=== PATIENT | male | born 1975 | race Caucasian/White ===

== ENCOUNTER 2023-09-24 09:33 | Outpatient (OUT) | payer MEDICAID, SELFPAY ==
[2023-09-24 09:48] LABS: Basophils Absolute Auto 0.1 10^3/uL (0.0-0.1); Basophils Percent Auto 0.9 % (0.2-2.0); Eosinophils Absolute Auto 0.2 10^3/uL (0.0-0.7); Eosinophils Percent Auto 2.9 % (0.9-7.0); Hematocrit 38.5 % (42.0-54.0); Hemoglobin 13.1 g/dL (14.0-18.0); Immature Granulocytes Abs Auto 0.08 10^3/uL (0.00-0.03); Immature Granulocytes Pct Auto 1.1 % (0.0-0.5); Lymphocytes Absolute Auto 1.8 10^3/uL (1.2-3.8); Lymphocytes Percent Auto 23.3 % (20.5-60.0); Mean Corpuscular Hemoglobin 29.5 pg (25.9-34.0); Mean Corpuscular Volume 86.7 fL (80.0-94.0); Mean Platelet Volume 9.1 fL (9.5-13.5); Monocytes Absolute Auto 0.6 10^3/uL (0.3-0.8); Monocytes Percent Auto 8.3 % (1.7-12.0); Neutrophils Absolute Auto 4.8 10^3/uL (1.4-6.5); Neutrophils Percent Auto 63.5 % (43.0-75.0); Platelet Count 192 10^3/uL (150-450); Red Blood Count 4.44 10^6/uL (4.70-6.10); Red Cell Distribution Width 12.6 % (11.0-15.0); White Blood Count 7.6 10^3/uL (4.0-11.0)
[2023-09-24 11:15] LABS: Alanine Aminotransferase 33 U/L (16-63); Albumin Globulin Ratio 1.1; Albumin Level 3.5 g/dL (3.4-5.0); Alkaline Phosphatase 98 U/L (46-116); Anion Gap 9.4; Aspartate Amino Transferase 17 U/L (15-37); BUN Creatinine Ratio 21.2; Bilirubin Total 0.7 mg/dL (0.2-1.0); Calcium 8.4 mg/dL (8.5-10.1); Carbon Dioxide 27.9 mmol/L (21.0-32.0); Chloride 103 mmol/L (98-107); Chol HDL Ratio 3.4; Cholesterol 125 mg/dL (<=200); Estimated GFR (African America >60 (>=60); Estimated GFR (Non-African Ame >60 (>=60); Globulin 3.2 g/dL; Glucose 103 mg/dL (74-106); HDL Cholesterol 37 mg/dL (40-60); Potassium 3.3 mmol/L (3.5-5.1); Sodium 137 mmol/L (136-145); Total Protein 6.7 g/dL (6.4-8.2); Triglycerides 83 mg/dL (<=150); VLDL CHOLESTEROL 16.6 mg/dL
== END 2023-09-24 09:34 | disposition home or self-care (01) ==
LOC: LAB 09:34
PROVIDERS: PCP Family Medicine; Visit Provider Internal Medicine Interventional Cardiology
DX: I10 Essential (primary) hypertension (principal); E78.5 Hyperlipidemia, unspecified
CPT/HCPCS: 36415; 80053; 80061; 85025

== ENCOUNTER 2023-10-22 08:53 | Outpatient (OUT) | payer MEDICAID, SELFPAY ==
--- NOTE | 2023-10-22 | PCN_ITS ---
CARDIAC STRESS TEST Requesting Physician:? Procedure Date:? 10/22/2023 INDICATION:? Chest pain. METHODS:? After risks, benefits and alternatives were explained, written informed consent was obtained.? The patient was brought to the Stress Lab in a resting and fasting state. He underwent a Lexiscan Pharmacological Stress Test, 0.4 mg of Lexiscan was infused intravenously.? He was monitored for the standard duration and discharged in a stable state.? There were no complications. FINDINGS HEMODYNAMICS:? Resting heart rate was 76 beats per minute, increasing to a maximum of 100 beats per minute. Resting blood pressure was 116/72, with a maximum blood pressure of 140/70. ELECTROCARDIOGRAPHY:? Resting EKG:? Sinus rhythm, right bundle branch block.? Abnormal EKG. During infusion and recovery:? No significant ST-T wave changes noted.? No significant arrhythmia seen.? CONCLUSIONS: 1.? No ischemic EKG changes seen on Lexiscan Cardiolite Stress Test. 2.? Nuclear images are to be read, interpreted and reported in a separate dictation. [facility]
--- NOTE | 2023-10-22 09:30 | NM_ITS ---
Patient Name: DERRELL CAGLE MR#: [id number] : 1975 Exam Date: 10/22/2023 Ordering Doctor: DR JUAN MORRIS M.D. RADIOLOGY REPORT PROCEDURE: NM REED PERF SPECT REST STR COMPARISON: None. INDICATIONS: CORONARY ARTERY DISEASE TECHNIQUE: Exam Description: Stress/Rest two day protocol gated SPECT Rest Imagin.5 mCi Tc-99m Cardiolite IV on 10/24/2023 Stress Imaging 26.6 mCi Tc-99m Cardiolite IV on 10/22/2023 Exercise Protocol: 0.4 mg Lexiscan given IV Heart Rate (bpm): Rest: 76 Max: 100 PMHR: 58 Blood Pressure: Rest: 116/72 Max: 140/70 Symptoms: Rest and peak stress ECG findings were normal and the exercise portion of the study was normal per attending physician Dr. Argueta . For more details please see separate cardiac stress test report. FINDINGS: QUALITY OF STUDY: Excellent. PERFUSION DEFECT: LOCATION: Basal inferior. Mid-inferior. Apical inferior. SIZE: Medium (3-4 segments). SEVERITY: Mild. TYPE: Persistent. WALL MOTION: Normal. LV SIZE: Enlarged; EDV 146 mL. TID / TCD: None; 1.1 LVEF: Normal. Calculated EF 59%. SUMMARY: Myocardial perfusion imaging study has ABNORMAL findings. CONCLUSION: 1. No acute or reversible ischemia. 2. Slightly decreased activity within the inferior wall; diaphragm attenuation artifact versus remote infarction with fixed ischemia. 3. Left ventriculomegaly, 146 mL. 4. Normal wall motion and ejection fraction. Dictated by: Regino Porter M.D. on 10/24/2023 at 14:11 Approved by: Regino Porter M.D. on 10/24/2023 at 14:15
[2023-10-22] MEDS: REGADENOSON 0.4 MG/5 ML SYRINGE IV (09:44)
== END 2023-10-22 08:54 | disposition home or self-care (01) ==
PROVIDERS: PCP Family Medicine; Visit Provider Internal Medicine Interventional Cardiology
DX: I25.118 Atherosclerotic heart disease of native coronary artery with other forms of angina pectoris (principal)
CPT/HCPCS: 78452; 93017; A9500; J2785

== ENCOUNTER 2024-06-22 13:31 | Outpatient (OUT) | payer MEDICAID, SELFPAY ==
--- NOTE | 2024-06-22 13:40 | CA_ITS ---
Patient Name: DERRELL CAGLE MR#: [id number] : 1975 Exam Date: 06/22/2024 Ordering Doctor: DR JUAN OKEEFE M.D. ECHOCARDIOGRAM REPORT PROCEDURE: CA ECHO DOPPLER COMPLETE INDICATIONS: Dyspnea COMPARISON: None. DESCRIPTION: COMPLETE ECHOCARDIOGRAM Real-time transthoracic echocardiography with 2D, M-mode, spectral and color flow Doppler performed. QUALITY: Technical quality was good. LEFT VENTRICLE: Normal chamber size. Borderline left ventricular hypertrophy. Global left ventricular systolic function is normal. LV EF: Calculated left ventricular ejection fraction is 55%. DIASTOLIC: Normal diastolic function. ATRIAL SEPTUM: LEFT ATRIUM: Normal chamber size. RIGHT ATRIUM: Mild dilatation. RIGHT VENTRICLE: Normal chamber size. Normal right ventricular systolic function. TRICUSPID VALVE: Normal mobility and thickness. No stenosis with trivial regurgitation. No evidence of pulmonary hypertension. RVSP 22 mmHg MITRAL VALVE: Normal mobility and thickness. No mitral valve prolapse. No evidence of mitral valve stenosis. There is no mitral annular calcification. No mitral regurgitation. AORTIC VALVE: Normal trileaflet appearance. No visible sclerosis. Normal leaflet mobility. No evidence of aortic valve stenosis. No aortic regurgitation. AORTIC ROOT: Normal diameter and appearance. PULMONIC VALVE: Normal thickness and mobility. No stenosis. No regurgitation. PERICARDIUM: No evidence of pericardial effusion. IVC: Collapses with inspirations. Normal size. PLEURA: CONCLUSION: 1. The left ventricle is normal in size and exhibits normal systolic function. LVEF is 55%. 2. Normal right ventricular size and systolic function. 3. Normal diastolic function. 4. No significant valvular dysfunction. 5. Normal right-sided pressures. Adult Echocardiography Procedure Report Left Ventricle LVEDD (3.7 - 5.6 cm): 4.38 cm LVESD (2.2 - 4.0 cm): 2.99 cm LVIVS thickness (0.6 - 1.2 cm): 1.18 cm LVPW thickness (0.5 - 1.0 cm): 1.01 cm e': 0.09 m/s E - e': 3.99 LVOT Max Gradient: 2.75 mm[Hg], 2.85 mm[Hg] LVOT Area (cm2): 0.84 m/s Peak Velocity (LVOT): 0.83 m/s, 0.84 m/s Mean Velocity (LVOT): 0.58 m/s LVOT Diameter 2.14 cm Left Ventricular Ejection Fraction: 55 % Left Atrium LA Volume Index (2D A2C): 21.25 ml/m2 Left Atrium Systolic Dimension: 3.38 cm Mitral Valve MV E to A Ratio: 0.97 Mitral Valve A-Wave Peak Velocity: 0.37 m/s Mitral Valve E-Wave Peak Velocity: 0.36 m/s Right Ventricle RV Internal Diastolic Dimension: 3.57 cm Aorta AO Root Diam: 2.98 cm Aortic Valve AoV Area (Peak Hugo): 2.45 cm2, 2.43 cm2 AoV Area (VTI): 2.58 cm2, 2.57 cm2 Peak Velocity(Antegrade Flow): 1.22 m/s Peak Gradient(Antegrade Flow): 5.99 mm[Hg] Mean Velocity(Antegrade Flow): 0.80 m/s Mean Gradient(Antegrade Flow): 2.91 mm[Hg] Velocity Time Integral: 21.39 cm Tricuspid Valve Peak Velocity (Regurgitant Flow): 2.20 m/s, 2.01 m/s, 2.15 m/s Pulmonic Valve Mean Gradient: 1.43 mm[Hg] Mean Velocity: 0.56 m/s Peak Velocity: 0.81 m/s, 0.90 m/s Peak Gradient: 3.26 mm[Hg], 2.62 mm[Hg] Right Atrium Right Atrium Systolic Pressure: 66.15 ml, 66.15 ml Dictated by: Juan Okeefe M.D. on 06/22/2024 at 18:18 Approved by: Juan Okeefe M.D. on 06/22/2024 at 18:20
--- OUTSIDE RECORDS SUMMARY | 2024-06-22 13:45 | XMS_ITS | CCD ---
Author Organization [facility] Team Providers Care Auto Bench Mechanic Name Role Phone PHYSICIAN, DEFAULT Unavailable Unavailable PHYSICIAN, DEFAULT Unavailable Unavailable NATALI JORGE Unavailable Unavailable PHYSICIAN, DEFAULT Unavailable Unavailable PHYSICIAN, DEFAULT Unavailable Unavailable NATALI JORGE Unavailable Unavailable HERBERT KATZ Consulting Unavailable LUISITO, DR NATALI Alvarenga Primary Care Unavailable HERBERT KATZ Admitting Unavailable HERBERT KAZT Attending Unavailable SE PRICE Attending Unavailable ALBERT, SE Admitting Unavailable DR JORDON WHITE Consulting Unavailable LUISITO, DR NATALI Alvarenga Primary Care Unavailable SE PRICE Consulting Unavailable Nikki Camara Unavailable JUAN MORRIS Attending Unavailable JUAN MORRIS Attending Unavailable JUAN MORRIS Attending Unavailable Allergies Allergy Classification Reported Allergen(s) Allergy Type Date of Onset Reaction(s) Facility (1 source) Latex Drug allergy (disorder) 04-25-2016 [facility] Repository Medications Current Medications Medication Drug Class(es) Dates Sig (Normalized) Sig (Original) aspirin 81 mg chewable tablet (1 source) Platelet Aggregation Inhibitor, Nonsteroidal Anti-inflammatory Drug take 1 tablet by mouth in the morning Aspirin Low Dose 81 MG CHEW AND SWALLOW 1 (ONE) TABLET BY MOUTH IN THE MORNING Oral for 30 Days Active atorvastatin 80 mg oral tablet (1 source) HMG-CoA Reductase Inhibitor Atorvastatin Calcium 80 MG Oral for 30 Days Active cilostazol 100 mg oral tablet (1 source) Phosphodiesterase 3 Inhibitor Cilostazol 100 MG Oral for 30 Days Active ezetimibe 10 mg oral tablet (1 source) Dietary Cholesterol Absorption Inhibitor take 1 tablet by mouth in the morning Ezetimibe 10 MG TAKE 1 TABLET BY MOUTH IN THE MORNING Oral for 30 Days Active hydroCHLOROthiazide 25 mg oral tablet (1 source) Thiazide Diuretic Start: 01-22-20 16 take 1 tablet by mouth every twenty-four hours hydroCHLOROthiazide 25 MG 1 tablet Orally Once a day for 14 days Dec, Active losartan potassium 50 mg oral tablet (1 source) Angiotensin 2 Receptor Eris Start: 01-22-20 16 take 1 tablet by mouth every twenty-four hours Losartan Potassium 50 MG 1 tablet Orally Once a day for 14 days Dec, Active metoprolol tartrate 25 mg oral tablet (1 source) beta-Adrenergic Eris Metoprolol Tartrate 25 MG Oral for 30 Days Active NIFEdipine 60 mg osmotic 24 hr extended release oral tablet (1 source) Dihydropyridine Calcium Channel Eris take 1 tablet by mouth once daily NIFEdipine ER Osmotic Release 60 MG TAKE 1 TABLET BY MOUTH DAILY Oral for 30 Days Active Nitro Sublingual 0.4 0.4mg (1 source) Nitro Sublingual 0.4 0.4mg 1 Sublingual Every 5min x3 Active omeprazole 20 mg delayed release oral capsule (1 source) Proton Pump Inhibitor take 1 tablet by mouth in the morning Omeprazole 20 MG TAKE 1 TABLET BY MOUTH IN THE MORNING Oral for 30 Days Active spironolactone 25 mg oral tablet (1 source) Aldosterone Antagonist Spironolactone 25 MG Oral for 8 Days Active Completed/Discontinued Medications Medication Drug Class(es) Dates Sig (Normalized) Sig (Original) Dexamethasone / Neomycin / Polymyxin B (1 source) Aminoglycoside Antibacterial, Polymyxin-class Antibacterial, Corticosteroid Start: 01-09-2018 take 2 drop(s) into the eye(s) three times daily as needed Maxitrol 3.5-46291-8.1 2 drops into affected eye Ophthalmic Three times a day for 7 days Dec, Not-Taking/PRN Problems Active Problems Problem Classification Problem Date Documented Date Episodic/Chronic Chronic obstructive pulmonary disease and bronchiectasis (4 sources) Chronic obstructive pulmonary disease, unspecified; Translations: [COPD UNSPECIFIED] Onset: 04-10-2022 Chronic Coronary atherosclerosis and other heart disease (8 sources) Atherosclerotic heart disease of [place] coronary artery without angina pectoris; Translations: [Atherosclerotic heart disease of [place] coronary artery with other forms of angina pectoris] Onset: 06-14-2021 Chronic Coronary atherosclerosis and other heart disease (2 sources) Presence of coronary angioplasty implant and graft; Translations: [Presence of coronary angioplasty implant and graft] Onset: 05-20-2024 Episodic Disorders of lipid metabolism (2 sources) Mixed hyperlipidemia; Translations: [Mixed hyperlipidemia] Onset: 07-18-2022 Chronic Esophageal disorders (2 sources) Gastro-esophageal reflux disease without esophagitis; Translations: [Gastro-esophageal reflux disease without esophagitis] Onset: 09-26-2023 Chronic Essential hypertension (2 sources) Essential (primary) hypertension; Translations: [Essential (primary) hypertension] Onset: 07-18-2022 Chronic Other lower respiratory disease (2 sources) Shortness of breath; Translations: [Shortness of breath] Onset: 05-20-2024 Episodic Other nutritional; endocrine; and metabolic disorders (2 sources) Morbid (severe) obesity due to excess calories; Translations: [Morbid (severe) obesity due to excess calories] Onset: 09-30-2022 Chronic Peripheral and visceral atherosclerosis (2 sources) Peripheral vascular disease, unspecified; Translations: [Peripheral vascular disease, unspecified] Onset: 09-26-2023 Chronic Residual codes; unclassified (2 sources) Localized edema; Translations: [Localized edema] Onset: 05-20-2024 Episodic Past or Other Problems Problem Classification Problem Date Documented Da te Episodic/Chronic Unclassified (1 source) Exposure to COVID-19 virus Z20.822 Viral infection (1 source) COVID-19 Results Test Name Value Interpretation Reference Range Facility Office Visiton 05-20-2024 Follow-up visit [id number] Silverio Cagle 1975 M Date Provider Department Center 05/20/2024 JUAN NGUYEN Family History Problem Relation Age of Onset Diabetes Mother Hypertension Mother Diabetes Father Hypertension Father Coronary artery disease Father Family Status - Relation Status Age at Mother Father Level of Service:87135 [place] OFFICE/OUTPATIENT ESTABLISHED MOD MDM 30 MIN Normal [facility] COVID + FLU Quick Testingon 12-01-2023 SARS-CoV-2 (COVID-19) RNA SINDY+probe Ql (Unsp spec) Positive [facility] Other COVID + FLU Quick Testing Negative [facility] Other Office Visiton 11-12-2023 Follow-up visit [id number] Silverio Cagle 1975 M Date Provider Department Center 11/12/2023 JUAN NGUYEN Family History Problem Relation Age of Onset Diabetes Mother Hypertension Mother Diabetes Father Hypertension Father Coronary artery disease Father Family Status - Relation Status Age at Mother Father Level of Service:49736 [place] OFFICE/OUTPATIENT ESTABLISHED LOW MDM 20 MIN Normal [facility] Office Visiton 09-26-2023 Follow-up visit [id number] Silverio Cagle 1975 M Date Provider Department Center 09/26/2023 WENDYJUAN [facility] Family History Problem Relation Age of Onset Diabetes Mother Hypertension Mother Diabetes Father Hypertension Father Coronary artery disease Father Family Status - Relation Status Age at Mother Father Level of Service:08183 [place] OFFICE/OUTPATIENT ESTABLISHED MOD MDM 30-39 MIN Reason for Visit and Comments: Follow-up [093302] Normal [facility] HEMOGLOBINon 04-10-2022 Hemoglobin (Bld) [Mass/Vol] 13.5 g/dL Critically low 14.0-18.0 [facility] Comment on above: Performed By: #### H GB #### [facility] [address] [address] [address] Martínez Baca XR CHEST 2 Von 04-10-2022 XR CHEST 2 V EXAMINATION: XR CHEST 2 V HISTORY: Chronic obstructive lung disease , wheezing COMPARISON: XR chest 01/12/2019 FINDINGS: LUNGS: Stable scattered tiny nodules and mild stranding within lung bases. Hyperexpanded lungs. VASCULATURE: No increased pulmonary vasculature. PLEURA: No pneumothorax, effusion, or pleural thickening. CARDIAC: No cardiomegaly or cardiac silhouette abnormality. MEDIASTINUM: No visible mass or adenopathy. BONES: No fracture or visible bone lesion. OTHER: Negative. IMPRESSION: 1. No acute cardiopulmonary process. 2. Stable mild chronic changes within lung bases. Electronically authenticated by: JORDON WHITE Date: 2022-04-10 12:46 Normal [facility] CBC AUTO DIFFon 06-14-2021 BASO # 0.0 103/ul Normal 0.0-0.1 [facility] Comment on above: Performed By: #### C BC #### [facility] [address] [place], [place] [address] Nikhil Negron Basophils/100 WBC (Bld) 0.5 % Normal 0.2-2.0 [facility] Comment on above: Performed By: #### C BC #### [facility] [address] [id number] Nikhil Migdalia EO # 0.2 103/ul Normal 0.0-0.7 [facility] Comment on above: Performed By: #### C BC #### [facility] [address] [id number] Nikhil Migdalia Eosinophils/100 WBC (Bld) 2.9 % Normal 0.9-7.0 [facility] Comment on above: Performed By: #### C BC #### [facility] [address] [id number] Nikhil Migdalia Erythrocyte distribution width (RBC) [Ratio] 12.8 % Normal 11.0-15.0 [facility] Comment on above: Performed By: #### C BC #### [facility] [address] [place] [address] Nikhil Migdalia Hematocrit (Bld) [Volume fraction] 41.2 % Critically low 42.0-54.0 [facility] Comment on above: Performed By: #### C BC #### [facility] [address] [place], [place] [phone] Nikhil Migdalia Hemoglobin (Bld) [Mass/Vol] 13.9 g/dL Critically low 14.0-18.0 [facility] Comment on above: Performed By: #### C BC #### [facility] [address] [place], [place] [phone] Nikhil Migdalia IG # 0.05 10e3/ul Critically high 0.00-0.03 [facility] Comment on above: Performed By: #### C BC #### [facility] [address] [place], [place] [phone] Nikhil Migdalia IG % 0.9 % Critically high 0.0-0.5 [facility] Comment on above: Performed By: #### C BC #### [facility] [address] [place] [address] Nikhil Migdalia LYMPH # 1.6 103/ul Normal 1.2-3.8 [facility] Comment on above: Performed By: #### C BC #### [facility] [address] [place], [place] [address] Nikhil Migdalia Lymphocytes/100 WBC (Bld) 26.6 % Normal 20.5-60.0 [facility] Comment on above: Performed By: #### C BC #### [facility] [address] [place] [address] Nikhil Migdalia MANUAL DIFF REQ NO Normal [facility] Comment on above: Performed By: #### C BC #### [facility] [address] [place], [place] [phone] Nikhil Migdalia MCH (RBC) [Entitic mass] 29.1 pg Normal 25.9-34.0 [facility] Comment on above: Performed By: #### C BC #### [facility] [address] [place], [place] [id number] Nikhil Migdalia MCHC (RBC) [Mass/Vol] 33.7 g/dL Normal 29.9-35.2 [facility] Comment on above: Performed By: #### C BC #### [facility] [address] [place], [place] [phone] Nikhil Migdalia MCV (RBC) [Entitic vol] 86.4 fL Normal 80.0-94.0 [facility] Comment on above: Performed By: #### C BC #### [facility] [address] [place], [place] [address] Nikhil Migdalia MONO # 0.6 103/ul Normal 0.3-0.8 [facility] Comment on above: Performed By: #### C BC #### [facility] [address] [place], [place] [address] Nikhil Migdalia Monocytes/100 WBC (Bld) 9.7 % Normal 1.7-12.0 [facility] Comment on above: Performed By: #### C BC #### [facility] [address] [place], [place] [address] Nikhil Migdalia NEUT # 3.5 103/ul Normal 1.4-6.5 [facility] Comment on above: Performed By: #### C BC #### [facility] [address] [id number] Nikhil Negron Neutrophils/100 WBC (Bld) 59.4 % Normal 43.0-75.0 [facility] Comment on above: Performed By: #### C BC #### [facility] [address] [id number] Nikhil Negron Platelet mean volume (Bld) [Entitic vol] 9.7 fL Normal 9.5-13.5 [facility] Comment on above: Performed By: #### C BC #### [facility] [address] [id number] Nikhil Migdalia PLT 203 103/ul Normal 150-450 [facility] Comment on above: Performed By: #### C BC #### [facility] [address] [place], [place] [phone] Nikhil Migdalia RBC 4.77 106/ul Normal 4.70-6.10 [facility] Comment on above: Performed By: #### C BC #### [facility] [address] [id number] Nikhil Migdalia WBC 5.9 103/ul Normal 4.0-11.0 [facility] Comment on above: Performed By: #### C BC #### [facility] [address] [place], [place] [phone] Nikhil Negron LIPID PROFILEon 06-14-2021 CHOL-HDL RATIO NORM SEE BELOW Normal [facility] Comment on above: Result Comment: 3.3 - 4.4 LOW RISK 4.4 - 7.1 AVERAGE RISK 7.1 - 11.0 MODERATE RISK >11.0 HIGH RISK Performed By: #### L JEANNIE HAYES, LIPID #### [facility] [address] [place], [place] [address] Nikhil Migdalia Cholesterol [Mass/Vol] 117 mg/dL Normal <=200 [facility] Comment on above: Performed By: #### JEANNIE DELATORRE, LIPID #### [facility] [address] [place], [place] [address] Nikhil Migdalia Cholesterol in HDL [Mass/Vol] 34 mg/dL Normal [facility] Comment on above: Performed By: #### L JEANNIE HAYES, LIPID #### [facility] [address] [id number] Nikhil Migdalia Cholesterol in LDL [Mass/Vol] 64.2 mg/dL Normal [facility] Comment on above: Performed By: #### JEANNIE DELATORRE, LIPID #### [facility] [address] [place], [place] [address] Nikhil Migdalia Cholesterol.total/ Cholesterol in HDL [Mass ratio] 3.4 {ratio} Normal [facility] Comment on above: Performed By: #### JEANNIE DELATORRE, LIPID #### [facility] [address] [id number] Nikhil Migdalia HDL NORMAL > or = 60 mg/dl - LOW CARDIOVASCULAR RISK <40 mg/dl - HIGH CARDIOVASCULAR RISK Normal [facility] Comment on above: Performed By: #### JEANNIE DELATORRE, LIPID #### [facility] [address] [place] [address] Nikhil Migdalia LDL CALC NORMAL SEE BELOW Normal [facility] Comment on above: Result Comment: <100 mg/dl OPTIMAL 100 - 129 mg/dl NEAR OR ABOVE OPTIMAL 130 - 159 mg/dl BORDERLINE HIGH 160 - 189 mg/dl HIGH >190 mg/dl VERY HIGH Performed By: #### JEANNIE DELATORRE, LIPID #### [facility] [address] [address] Nikhil Migdalia Triglyceride [Mass/Vol] 94 mg/dL Normal <=150 [facility] Comment on above: Performed By: #### JEANNIE DELATORRE, LIPID #### [facility] [address] [place], [place] [phone] Nikhil Migdalia VLDL CALC 18.8 mg/dL Normal [facility] Comment on above: Performed By: #### JEANNIE DELATORRE, LIPID #### [facility] [address] [id number] Nikhil Migdalia LIVER PROFILEon 06-14-2021 Albumin [Mass/Vol] 3.8 g/dL Normal 3.5-5.0 [facility] Comment on above: Performed By: #### JEANNIE DELATORRE, LIPID #### [facility] [address] [id number] Nikhil Migdalia Albumin/Globulin [Mass ratio] 1.2 {ratio} Normal [facility] Comment on above: Performed By: #### JEANNIE DELATORRE, LIPID #### [facility] [address] [place], [place] [address] Nikhil Migdalia ALP [Catalytic activity/Vol] 104 U/L Normal 38-126 [facility] Comment on above: Performed By: #### JEANNIE DELATORRE, LIPID #### [facility] [address] [id number] Nikhil Migdalia ALT [Catalytic activity/Vol] 31 U/L Normal 21-72 [facility] Comment on above: Performed By: #### JEANNIE DELATORRE, LIPID #### [facility] [address] [address] Nikhil Migdalia AST [Catalytic activity/Vol] 15 U/L Critically low 17-59 [facility] Comment on above: Performed By: #### JEANNIE DELATORRE, LIPID #### [facility] [address] [id number] Nikhil Migdalia BILI, CONJUGATED 0.1 mg/dL Normal 0.0-0.3 [facility] Comment on above: Performed By: #### JEANNIE DELATORRE, LIPID #### [facility] [address] [id number] Nikhil Migdalia Bilirubin [Mass/Vol] 0.8 mg/dL Normal 0.2-1.3 [facility] Comment on above: Performed By: #### JEANNIE DELATORRE, LIPID #### [facility] [address] [id number] Nikhil Migdalia Globulin (S) [Mass/Vol] 3.3 g/dL Normal [facility] Comment on above: Performed By: #### JEANNIE DELATORRE, LIPID #### [facility] [address] [phone] Nikhil Migdalia Protein [Mass/Vol] 7.1 g/dL Normal 6.1-8.2 [facility] Comment on above: Performed By: #### JEANNIE DELATORRE, LIPID #### [facility] [address] [address] Nikhil Migdalia PROF CHEM 8 (BAS METB)on Anion gap [Moles/Vol] 12.4 mmol/L Normal [facility] Comment on above: Performed By: #### L IVER, BMP, LIPID #### [facility] [address] [place] [address] Nikhil Migdalia Calcium [Mass/Vol] 8.9 mg/dL Normal 8.4-10.2 [facility] Comment on above: Performed By: #### L IVER, BMP, LIPID #### [facility] [address] [place] [address] Nikhil Migdalia Chloride [Moles/Vol] 104 mmol/L Normal 98-107 [facility] Comment on above: Performed By: #### L IVER, BMP, LIPID #### [facility] [address] [place] [address] Nikhil Migdalia CO2 [Moles/Vol] 29.3 mmol/L Normal 22.0-30.0 [facility] [place] [facility] Comment on above: Performed By: #### L IVER, BMP, LIPID #### [facility] [address] [place] [address] Nikhil Migdalia Creatinine [Mass/Vol] 1.15 mg/dL Normal 0.66-1.25 [facility] Comment on above: Performed By: #### L IVER, BMP, LIPID #### [facility] [address] [place] [address] Nikhil Migdalia EGFR-AF [place]OREAN >60 Normal >=60 [facility] Comment on above: Performed By: #### L IVER, BMP, LIPID #### [facility] [address] [place] [address] Nikhil Migdalia EGFR-NON AF [place]AN >60 Normal >=60 [facility] Comment on above: Performed By: #### L IVER, BMP, LIPID #### [facility] [address] [place] [address] Nikhil Migdalia Glucose [Mass/Vol] 118 mg/dL Critically high 74-106 [facility] Comment on above: Performed By: #### L IVER, BMP, LIPID #### [facility] [address] [id number] Nikhil Migdalia Potassium [Moles/Vol] 3.7 mmol/L Normal 3.4-5.0 [facility] Comment on above: Performed By: #### L IVER, BMP, LIPID #### [facility] [address] [place], [place] [phone] Nikhil Migdalia Sodium [Moles/Vol] 142 mmol/L Normal 137-145 [facility] Comment on above: Performed By: #### L IVLAKEISHA BMP, LIPID #### [facility] [address] [place], [place] [address] Nikhil Migdalia Urea nitrogen [Mass/Vol] 16.0 mg/dL Normal 9.0-20.0 [facility] Comment on above: Performed By: #### L IVLAKEISHA BMP, LIPID #### [facility] [address] [place], [place] [phone] Nikhil Migdalia Urea nitrogen/Creatinin e [Mass ratio] 13.9 mg/mg Normal [facility] Comment on above: Performed By: #### L IVLAKEISHA BMP, LIPID #### [facility] [address] [place] [address] Nikhil Migdalia Vital Signs Date Time Vital Sign Value Performing Clinician Facility 12-01-2023 09:00-0500 Body height 180.34 cm Nikki Camara Other [facility] Other 12-01-2023 09:00-0500 Body mass index (BMI) [Ratio] 42.81 kg/m2 Nikki Camara Other [facility] Other 12-01-2023 09:00-0500 Body temperature 98.3 [degF] Nikki Camara Other [facility] Other 12-01-2023 09:00-0500 Body weight 139.26 kg Nikki Camara Other [facility] Other 12-01-2023 09:00-0500 Diastolic blood pressure 81 mm[Hg] Nikki Hoa Other [facility] Other 12-01-2023 09:00-0500 Respiratory rate 18 /min Nikki Hoa Other [facility] Other 12-01-2023 09:00-0500 SaO2% (BldA) [Mass fraction] 97 % Nikki Hoa Other [facility] Other 12-01-2023 09:00-0500 Systolic blood pressure 138 mm[Hg] Nikki Hoa Other [facility] Other Encounters Encounter Date Encounter Type Care Provider Facility Start: 05-20-2024 End: 05-20-2024 ambulatory [facility] Start: 12-01-2023 End: 12-01-2023 ambulatory Nikki Camara Other [facility] Other Start: 12-01-2023 Office outpatient ne w 20 minutes Nikki Camara [facility] Start: 11-12-2023 End: 11-12-2023 ambulatory [facility] Start: 09-26-2023 ambulatory [facility] Start: 04-10-2022 End: 04-11-2022 ambulatory SE PRICE Facility:[facility] Start: 06-14-2021 End: 06-15-2021 ambulatory HERBERTFRANCESCA CONTES Facility:[facility] Start: 03-17-2018 End: 03-18-2018 Ambulatory DEFAULT PHYSICIAN Facility:[facility] Start: 03-16-2018 End: 03-17-2018 Ambulatory DEFAULT PHYSICIAN Facility:[facility] Payers Date Payer Category Payer Medicaid [id number] 2. [id number] 1975 Unknown [id number] 1975 Unknown [id number] 1961 Unknown [id number] Unknown Social History Date Type Detail Facility Sex Assigned At [facility] Other Progress note 05-20-2024 Note Date & Type Note Facility 05-20-2024 Note This report has been cancelled. [facility] Progress note 05-20-2024 Note Date & Type Note Facility 05-20-2024 Note [facility] Subjective Silverio Cagle is a 48 y.o. year old male patient being seen for 6 mo follow up CAD, PAD, hypertension, and hyperlipidemia. Zetia was added at last apt in Oct 2023. Says his chest pain is right-sided. RICE remains stable and unchanged. Patient would like to know if he can double up one of his diuretics due to LE edema. No recent labs/imaging. Patient Active Problem List Diagnosis Angina pectoris (CMS/HCC) Cardiovascular stress test abnormal Claudication (CMS/HCC) Coronary arteriosclerosis Essential hypertension Hyperlipidemia Mild chronic obstructive pulmonary disease (CMS/HCC) Morbid obesity (CMS/HCC) Cholesteatoma of right ear Sleep apnea Family History Problem Relation Name Age of Onset Diabetes Mother Hypertension Mother Diabetes Father Hypertension Father Coronary artery disease Father Social History Tobacco Use Smoking status: Every Day Types: Cigarettes Smokeless tobacco: Never Substance Use Topics Alcohol use: Yes Comment: occasional Drug use: Never HPI Mr Cagle is seen in follow up on CAD s/p PCI and stent and PAD. CAD: A stress test on 04/03/2016 showed inferior and inferolateral ischemia. His EF is 56%. Due to continued symptoms on maximal medical therapy, he underwent PCI to the PLV branch of the RCA using Promus Premier 2.75 x 16 mm drug-eluting stent on 09/18/2016. At a prior visit I stopped plavix since it has been 1 year after the PCI procedure. He has history of hypertension and dyslipidemia on treatment. He has strong family history of cardiac disease (father at 58 of [place], brother had multiple stents and diet at age 47 of other causes, other brother had CABG at age 51). He has history of COPD. He is a smoker since age 15. At a prior visit he was having sharp right sided chest pain that comes and goes. I checked a stress test 03/17/2018. This was normal. On 08/23/2019, he was seen as a sick call. He had been having pain in the right side of the chest, pressure-like. I checked troponin, blood testing for CBC and BMP as well as a stress test and those were negative. He has claudication and is being treated with pletal. Prior noninvasive testing showed no significantly obstructive disease. He was diagnosed with COPD and follows with pulmonary. At last visit of 09/26/2023 I optimize medical therapy due to symptoms of angina. I increased metoprolol succinate from 25 to 50 mg daily and increased isosorbide mononitrate from 30 mg daily to 60 mg daily. I checked a stress test 09/2023 and did not show evidence of ischemia. Today he reports that he has been doing well on medications. His chest pain resolved. He does have shortness of breath on exertion. He has not had to use sublingual nitroglycerin. He has been having lower extremity ankle and feet swelling. He reports that he does not have symptoms of claudication. He continues to smoke. Review of Systems Cardiovascular: Positive for chest pain (right sided), dyspnea on exertion (intermittent, stable) and leg swelling. Musculoskeletal: Positive for neck pain. Neurological: Positive for headaches. All other systems reviewed and are negative. Objective Visit Vitals BP 98/70 (BP Location: Right arm, Patient Position: Sitting) Pulse 67 Ht 1.803 m (5' 11 ) Wt (!) 143 kg (316 lb) SpO2 97% BMI 44.07 kg/m??? Smoking Status Every Day BSA 2.68 m??? Physical Exam Constitutional: Appearance: He is well-developed. He is obese. He is not ill-appearing. HENT: Head: Normocephalic and atraumatic. Nose: Nose normal. Eyes: General: No scleral icterus. Pupils: Pupils are equal, round, and reactive to light. Neck: Thyroid: No thyromegaly. Vascular: No JVD. Cardiovascular: Rate and Rhythm: Normal rate and regular rhythm. Pulses: Radial pulses are 2+ on the right side and 2+ on the left side. Heart sounds: Normal heart sounds. No murmur heard. No friction rub. No gallop. Pulmonary: Effort: Pulmonary effort is normal. No respiratory distress. Breath sounds: Normal breath sounds. No wheezing or rales. Chest: Chest wall: No tenderness. Abdominal: General: Bowel sounds are normal. There is no distension. Palpations: Abdomen is soft. Tenderness: There is no abdominal tenderness. Musculoskeletal: General: No swelling. Cervical back: Neck supple. Right lower le+ Pitting Edema present. Left lower le+ Pitting Edema present. Skin: General: Skin is warm and dry. Neurological: General: No focal deficit present. Mental Status: He is alert and oriented to person, place, and time. Psychiatric: Mood and Affect: Mood normal. Behavior: Behavior is cooperative. Judgment: Judgment normal. Allergies No Known Allergies Medications Current Outpatient Medications: aspirin 81 mg chewable tablet, Chew 1 tablet (81 mg) in the morning., Disp: 90 tablet, Rfl: 3 atorvastatin (Lipitor) 80 mg (more content not included)... [facility] Evaluation note 12-01-2023 Note Date & Type Note Facility 12-01-2023 Evaluation note Encounter Date Diagnosis Assessment Notes Nov, Exposure to COVID-19 virus (ICD-10 - Z20.822) Nov, COVID-19 (ICD-10 - U07.1) Discharge Instructions for COVID-19 (Suspected or Confirmed ) material was printed Drink plenty fluids, get plenty of rest. Continue home medications as prescribed. Take Tylenol or Motrin as needed for aches pains or fevers. Follow-up with your family physician if no improvement in 2 to 3 days. You must quarantine for 5 days after the onset of your symptoms of COVID [facility] Other Progress note 11-12-2023 Note Date & Type Note Facility 11-12-2023 Note [facility] Subjective Silverio Cagle is a 47 y.o. year old male patient being seen for follow up stress test. Says chest pain has resolved. Gets SOB w/ exertion intermittently. Patient Active Problem List Diagnosis Angina pectoris (CMS/HCC) Cardiovascular stress test abnormal Claudication (CMS/HCC) Coronary arteriosclerosis Essential hypertension Hyperlipidemia Mild chronic obstructive pulmonary disease (CMS/HCC) Morbid obesity ([facility]/HCC) Cholesteatoma of right ear Sleep apnea Family History Problem Relation Name Age of Onset Diabetes Mother Hypertension Mother Diabetes Father Hypertension Father Coronary artery disease Father Social History Tobacco Use Smoking status: Every Day Types: Cigarettes Smokeless tobacco: Never Substance Use Topics Alcohol use: Yes Comment: occasional Drug use: Never HPI Mr Cagle is seen in follow up on CAD s/p PCI and stent and PAD. CAD: A stress test on 04/03/2016 showed inferior and inferolateral ischemia. His EF is 56%. Due to continued symptoms on maximal medical therapy, he underwent PCI to the PLV branch of the RCA using Promus Premier 2.75 x 16 mm drug-eluting stent on 09/18/2016. At a prior visit I stopped plavix since it has been 1 year after the PCI procedure. He has history of hypertension and dyslipidemia on treatment. He has strong family history of cardiac disease (father at 58 of [place], brother had multiple stents and diet at age 47 of other causes, other brother had CABG at age 51). He has history of COPD. He is a smoker since age 15. At a prior visit he was having sharp right sided chest pain that comes and goes. I checked a stress test 03/17/2018. This was normal. On 08/23/2019, he was seen as a sick call. He had been having pain in the right side of the chest, pressure-like. I checked troponin, blood testing for CBC and BMP as well as a stress test and those were negative. He has claudication and is being treated with pletal. Prior noninvasive testing showed no significantly obstructive disease. He was diagnosed with COPD and follows with pulmonary. At last visit of 09/26/2023 I optimize medical therapy due to symptoms of angina. I increased metoprolol succinate from 25 to 50 mg daily and increased isosorbide mononitrate from 30 mg daily to 60 mg daily. I checked a stress test and did not show evidence of ischemia. Today he reports that he has been doing well on medications. His chest pain resolved. He does have shortness of breath on exertion. He has not had to use sublingual nitroglycerin. He reports that he does not have symptoms of claudication. He continues to smoke. Review of Systems Cardiovascular: Positive for dyspnea on exertion (intermittent) and leg swelling (minimal). Musculoskeletal: Positive for neck pain. All other systems reviewed and are negative. Objective Visit Vitals BP 124/68 (BP Location: Left arm, Patient Position: Sitting) Pulse 70 Ht 1.803 m (5' 11 ) Wt (!) 139 kg (306 lb) SpO2 97% BMI 42.68 kg/m??? Smoking Status Every Day BSA 2.64 m??? Physical Exam Constitutional: Appearance: He is well-developed. He is obese. He is not ill-appearing. HENT: Head: Normocephalic and atraumatic. Nose: Nose normal. Eyes: General: No scleral icterus. Pupils: Pupils are equal, round, and reactive to light. Neck: Thyroid: No thyromegaly. Vascular: No JVD. Cardiovascular: Rate and Rhythm: Normal rate and regular rhythm. Pulses: Radial pulses are 2+ on the right side and 2+ on the left side. Heart sounds: Normal heart sounds. No murmur heard. No friction rub. No gallop. Pulmonary: Effort: Pulmonary effort is normal. No respiratory distress. Breath sounds: Normal breath sounds. No wheezing or rales. Chest: Chest wall: No tenderness. Abdominal: General: Bowel sounds are normal. There is no distension. Palpations: Abdomen is soft. Tenderness: There is no abdominal tenderness. Musculoskeletal: General: No swelling. Cervical back: Neck supple. Skin: General: Skin is warm and dry. Neurological: General: No focal deficit present. Mental Status: He is alert and oriented to person, place, and time. Psychiatric: Mood and Affect: Mood normal. Behavior: Behavior is cooperative. Judgment: Judgment normal. Allergies No Known Allergies Medications Current Outpatient Medications: aspirin 81 mg chewable tablet, Chew 1 tablet (81 mg) in the morning., Disp: 90 tablet, Rfl: 3 atorvastatin (Lipitor) 80 mg tablet, Take 1 tablet (80 mg) by mouth once daily in the evening., Disp: 90 tablet, Rfl: 3 cilostazol (Pletal) 100 mg tablet, Take 1 tablet (100 mg) by mouth in the morning and at bedtime., Disp: 180 tablet, Rfl: 3 ezetimibe (Zetia) 10 mg tablet, Take 1 tablet (10 mg) by mouth in the morning., Disp: 90 tablet, Rfl: 3 furosemide (Lasix) 40 mg tablet, Take 1 tablet (40 mg) by mouth in the morning., Disp (more content not included)... [facility] Progress note 09-26-2023 Note Date & Type Note Facility 09-26-2023 Note [facility] Subjective Silverio Cagle is a 47 y.o. year old male patient being seen for Follow-up Patient Active Problem List Diagnosis Angina pectoris (CMS/HCC) Cardiovascular stress test abnormal Claudication (CMS/HCC) Coronary arteriosclerosis Essential hypertension Hyperlipidemia Mild chronic obstructive pulmonary disease (CMS/HCC) Morbid obesity (CMS/HCC) Cholesteatoma of right ear Sleep apnea Family History Problem Relation Name Age of Onset Diabetes Mother Hypertension Mother Diabetes Father Hypertension Father Coronary artery disease Father Social History Tobacco Use Smoking status: Every Day Types: Cigarettes Smokeless tobacco: Never Substance Use Topics Alcohol use: Yes Comment: occasional Drug use: Never HPI Mr Cagle is seen in follow up on CAD s/p PCI and stent and PAD. CAD: A stress test on 04/03/2016 showed inferior and inferolateral ischemia. His EF is 56%. Due to continued symptoms on maximal medical therapy, he underwent PCI to the PLV branch of the RCA using Promus Premier 2.75 x 16 mm drug-eluting stent on 09/18/2016. At a prior visit I stopped plavix since it has been 1 year after the PCI procedure. He has history of hypertension and dyslipidemia on treatment. He has strong family history of cardiac disease (father at 58 of [place], brother had multiple stents and diet at age 47 of other causes, other brother had CABG at age 51). He has history of COPD. He is a smoker since age 15. At a prior visit he was having sharp right sided chest pain that comes and goes. I checked a stress test 03/17/2018. This was normal. On 08/23/2019, he was seen as a sick call. He had been having pain in the right side of the chest, pressure-like. I checked troponin, blood testing for CBC and BMP as well as a stress test and those were negative. He has claudication and is being treated with pletal. Prior noninvasive testing showed no significantly obstructive disease. He was diagnosed with COPD and follows with pulmonary. Today he reports that he has been having episodes of chest pain described as pressure sensation lasting 5 to 10 minutes. They are retrosternal and radiating to the right and left side of the chest. The chest pain episodes happen at rest or with exertion. He has had to use sublingual nitroglycerin a few times in the past few months. The chest pain has been happening in the past few months. He reports that he does not have symptoms of claudication. He continues to smoke. Review of Systems Cardiovascular: Positive for chest pain. All other systems reviewed and are negative. Objective Visit Vitals BP 155/65 (BP Location: Left arm, Patient Position: Sitting, BP Cuff Size: Adult) Pulse 70 Ht 1.803 m (5' 11 ) Wt (!) 139 kg (306 lb) SpO2 97% BMI 42.68 kg/m??? Smoking Status Every Day BSA 2.64 m??? Physical Exam Constitutional: Appearance: He is well-developed. He is obese. He is not ill-appearing. HENT: Head: Normocephalic and atraumatic. Nose: Nose normal. Eyes: General: No scleral icterus. Pupils: Pupils are equal, round, and reactive to light. Neck: Thyroid: No thyromegaly. Vascular: No JVD. Cardiovascular: Rate and Rhythm: Normal rate and regular rhythm. Pulses: Radial pulses are 2+ on the right side and 2+ on the left side. Heart sounds: Normal heart sounds. No murmur heard. No friction rub. No gallop. Pulmonary: Effort: Pulmonary effort is normal. No respiratory distress. Breath sounds: Normal breath sounds. No wheezing or rales. Chest: Chest wall: No tenderness. Abdominal: General: Bowel sounds are normal. There is no distension. Palpations: Abdomen is soft. Tenderness: There is no abdominal tenderness. Musculoskeletal: General: No swelling. Cervical back: Neck supple. Skin: General: Skin is warm and dry. Neurological: General: No focal deficit present. Mental Status: He is alert and oriented to person, place, and time. Psychiatric: Mood and Affect: Mood normal. Behavior: Behavior is cooperative. Judgment: Judgment normal. Allergies No Known Allergies Medications Current Outpatient Medications: aspirin 81 mg chewable tablet, Chew 1 tablet (81 mg) in the morning., Disp: 90 tablet, Rfl: 3 tiotropium-olodateroL (Stiolto Respimat) 2.5-2.5 mcg/actuation mist inhaler, Inhale 2 Inhalation in the morning., Disp: , Rfl: Ventolin HFA 90 mcg/actuation inhaler, INHALE 2 PUFFS EVERY 4 HOURS NEEDED for SHORTNESS OF BREATH, Disp: , Rfl: atorvastatin (Lipitor) 80 mg tablet, Take 1 tablet (80 mg) by mouth once daily in the evening., Disp: 90 tablet, Rfl: 3 cilostazol (Pletal) 100 mg tablet, Take 1 tablet (100 mg) by mouth in the morning and at bedtime., Disp: 180 tablet, Rfl: 3 ezetimibe (Zetia) 10 mg tablet, Take 1 tablet (10 mg) by mouth in the morning., Disp: 90 tablet, Rfl: 3 furosemide (Lasix) 40 mg tablet, Take 1 tablet (40 mg (more content not included)... [facility] History general Narrative - Reported Note Date & Type Note Facility History general Narrative - Reported Type Medical History Hypertension Medical History hypercholesterolemia Surgical History ear surgery right ear Surgical History right hand Surgical History appendectomy Surgical History varicose vein stripping Surgical History heart stent 2017 Hospitalization History see above [facility] Other Summary Purpose Family History No Family History Records FoundNo Family History Records FoundNo Family History Records Found Advance Directives No Advanced Directives Records FoundNo Advanced Directives Records FoundNo Advanced Directives Records Found Additional Source Comments (unrecognized sect ion and content) No Status Records FoundNo Status Records FoundNo Status Records Found INFORMATION SOURCE (unrecogn ized section and content) DATE CREATED AUTHOR 05/14/2018 [facility] DATE CREATED AUTHOR AUTHOR'S ORGANIZ ATION 04/17/[address] [facility] DATE CREATED AUTHOR AUTHOR'S ORGANIZ ATION 05/22/2024 [facility] REASON FOR VISIT (unrecogniz ed section and content) COUGH, CONGESTION, N/V, LOOS E STOOL FOR RECORDS PERTAINING TO PATIENTS WHO ARE OR HAVE BEEN ENROLLED IN A CHEMICAL DEPENDENCY/SUBSTANCEABUSE PROGRAM, SOME INFORMATION MAY BE OMITTED. This clinical summary was aggregated from multiple sources. Caution should be exercised in using it in the provision of clinical care. This summary normalizes information from multiple sources, and as a consequence, information in this document may materially change the coding, format and clinical context of patient data. In addition, data may be omitted in some cases. CLINICAL DECISIONS SHOULD BE BASED ON THE PRIMARY CLINICAL RECORDS. [facility] [employer] [facility]. provides no warranty or guarantee of the accuracy or completeness of information in this document.
== END 2024-06-22 13:32 | disposition home or self-care (01) ==
LOC: CARD 13:32
PROVIDERS: PCP Family Medicine; Visit Provider Internal Medicine Interventional Cardiology
DX: R60.0 Localized edema (principal); R06.02 Shortness of breath
CPT/HCPCS: 93306

== ENCOUNTER 2025-10-19 15:34 | Outpatient (OUT) | payer MEDICAID, SELFPAY ==
--- OUTSIDE RECORDS SUMMARY | 2025-10-19 14:20 | XMS_ITS | Encounter Summary ---
Author Organization [facility] Address [address] [place] [address] Care Team Providers Care Book Coverer Name Role Phone Unavailable Primary Care Provider Unavailabl e Reason for Referral * Imaging (Emergency) - Pending ReviewSpecialtyDiagnoses / ProceduresReferred By ContactReferred To ContactCardiology Diagnoses PVD (peripheral vascular disease) Leg pain, bilateral Procedures Vascular US lower extremity arterial duplex bilateral Marion Gregory CNP [address] [facility] [place] [address] Phone: tel: fax: Referral IDStatusReasonStart DateExpiration DateVisits RequestedVisits [id number] Review Perform Procedure * Imaging (Emergency) - Pending ReviewSpecialtyDiagnoses / ProceduresReferred By ContactReferred To ContactCardiology Diagnoses PVD (peripheral vascular disease) Leg pain, bilateral Procedures Vascular US lower extremity venous duplex bilateral Marion Gregory CNP [address] [place] [address] Phone: tel: fax: Referral IDStatusReasonStart DateExpiration DateVisits RequestedVisits [id number] Review Perform Procedure Reason for Visit * ReasonCommentsFollow-upPatient is here today for a 1.5 year follow up appointment. No labs Patient states he feels not to bad, patient went a couple of day without bp meds and water pills. Patient needs a refill on his medi cations. Patient states his right big toe has been purple for the last couple of months. Patient denies chest pain, SOB/RICE,palpitations/racing heart. Patient complains of occasional lightheaded/dizzinessCoronary Artery Disease Hyperlipidemia Encounter Details DateTypeDepartmentCare Team (Latest Contact Info)Dfpsaxbswll50/26/2025 2:20 PM ESTOffice Visit [facility] [address] [place] [address] Marion Gregory, BASIN OPERATOR [address] [place] [address] Leg pain, bilateral (Primary Dx); Mixed hyperlipidemia; Coronary artery disease involving red devil coronary artery of red devil heart with other form of angina pectoris; Essential (primary) hypertension; Essential hypertension; Gastro-esophageal reflux disease without esophagitis; PVD (peripheral vascular disease) Social History Tobacco UseTypesPacks/DayYears UsedDateSmoking Tobacco: Every DayCigarettes Smokeless Tobacco: NeverAlcohol UseStandard Drinks/WeekCommentsYes0 (1 standard drink = 0.6 oz pure alcohol)occasionalUT Safety & EnvironmentAnswerDate Recorded Fear of Current or Ex-PartnerNot on file01/15/2024Emotionally AbusedNot on file 4Physically AbusedNot on file01/15/2024Sexually AbusedNot on file 4Physically or Sexually AbusedNot on file01/15/2024Sex and Gender InformationValueDate RecordedSex Assigned at AusdzSfse24/24/2025 3:54 PM EST Legal JqtZonq6305/22/2022 11:44 PM EDTGender RxjlzjsjCddq57/24/2025 3:54 PM EST Sexual OrientationHeterosexual or Uipmknnu86/24/2025 3:54 PM ESTdocumented as of this encounter Last Filed Vital Signs Vital SignReadingTime TakenCommentsBlood Locallkw547/6710/19/2025 2:38 PM EST Cwhas419610/19/2025 2:38 PM ESTTemperature--Respiratory Rate--Oxygen Lmkemgnzdn78% 10/19/2025 2:38 PM ESTInhaled Oxygen Concentration--Weight--Hnqtkg893.3 cm (5' 11 )10/19/2025 2:38 PM ESTBody Mass Index--documented in this encounter Plan of Treatment NameTypePriorityAssociated DiagnosesOrder ScheduleVascular US lower extremity venous duplex bilateralVascular UltrasoundSTAT PVD (peripheral vascular disease) Leg pain, bilateral Expected: 10/19/2025 (Approximate), Expires: 10/19/2027Vascular US lower extremity arterial duplex bilateralVascular UltrasoundSTAT PVD (peripheral vascular disease) Leg pain, bilateral Expected: 10/19/2025 (Approximate), Expires: 10/19/2027Comprehensive metabolic panelLabRoutine Mixed hyperlipidemia Coronary artery disease involving red devil coronary artery of red devil heart with other form of angina pectoris Expected: 10/19/2025 (Approximate), Expires: 10/19/2026BCLabRoutine Coronary artery disease involving red devil coronary artery of red devil heart with other form of angina pectoris Expected: 10/19/2025 (Approximate), Expires: 10/19/2026Lipid panelLabRoutine Mixed hyperlipidemia Expected: 10/19/2025 (Approximate), Expires: 10/19/2026documented as of this encounter Visit Diagnoses Diagnosis Leg pain, bilateral- Primary Pain in soft tissues of limb Mixed hyperlipidemia Coronary artery disease involving red devil coronary artery of red devil heart with other form of angina pectoris Essential (primary) hypertension Unspecified essential hypertension Essential hypertension Unspecified essential hypertension Gastro-esophageal reflux disease without esophagitis PVD (peripheral vascular disease) Unspecified peripheral vascular disease documented in this encounter
--- OUTSIDE RECORDS SUMMARY | 2025-10-19 15:41 | XMS_ITS | Clinical Summary ---
Author Organization [facility] Address [address] [place] [address] Care Team Providers Care Polisher Implant Name Role Phone Unavailable Primary Care Provider Unavailabl e Allergies No known active allergies Medications MedicationSigDispense QuantityRefillsLast FilledStart DateEnd DateStatus tiotropium-olodateroL (Stiolto Respimat) 2.5-2.5 mcg/actuation mist inhaler Inhale 2 Inhalation in the morning.Active Ventolin HFA 90 mcg/actuation inhaler INHALE 2 PUFFS EVERY 4 HOURS NEEDED for SHORTNESS OF FWADHD5601/15/2023ctive tiotropium (Spiriva Respimat) 2.5 mcg/actuation inhaler INHALE 2 PUFFS BY MOUTH EVERY DAYActive atorvastatin (Lipitor) 80 mg tablet Indications:Mixed hyperlipidemiaTake 1 tablet (80 mg) by mouth once daily in the evening. 90 tablet ctive ezetimibe (Zetia) 10 mg tablet Indications:Mixed hyperlipidemia,Coronary artery disease involving [place] coronary artery of [place] heart with other form of angina pectorisTake 1 tablet (10 mg) by mouth once daily as directed. 90 tablet ctive furosemide (Lasix) 40 mg tablet Indications:Essential (primary) hypertensionTake 1 tablet (40 mg) by mouth in the morning. 90 tablet ctive isosorbide mononitrate ER (Imdur) 60 mg 24 hr tablet Indications:Coronary artery disease involving [place] coronary artery of [place] heart with other form of angina pectorisTake 1 tablet (60 mg) by mouth once daily as directed. Do not crush or chew. 90 tablet ctive metoprolol tartrate (Lopressor) 50 mg tablet Indications:Coronary artery disease involving [place] coronary artery of [place] heart with other form of angina pectorisTake 1 tablet (50 mg) by mouth two times daily. 180 tablet ctive losartan (Cozaar) 100 mg tablet Indications:Essential (primary) hypertensionTake 1 tablet (100 mg) by mouth in the morning. 90 tablet ctive NIFEdipine XL (Procardia XL) 30 mg 24 hr tablet Indications:Essential hypertensionTake 1 tablet (30 mg) by mouth in the morning. Do not crush, chew, or split. 90 tablet ctive nitroglycerin (Nitrostat) 0.4 mg SL tablet Indications:Coronary artery disease involving [place] coronary artery of [place] heart with other form of angina pectorisDISSOLVE 1 TABLET UNDER THE TONGUE NEEDED FOR CHEST PAIN- MAY REPEAT EVERY 5 MINUTES IF NEEDED (MAX 3 DOSES.- IF NO RELIEF CALL 911) 25 tablet tive spironolactone (Aldactone) 25 mg tablet Indications:Essential hypertensionTake 0.5 tablets (12.5 mg) by mouth once daily as directed. 45 tablet ctive omeprazole (PriLOSEC) [address] capsule Indications:Gastro-esophageal reflux disease without esophagitisTake 1 capsule (20 mg) by mouth once daily as directed. 90 capsule ctive cilostazol (Pletal) 100 mg tablet Indications:PVD (peripheral vascular disease)Take 1 tablet (100 mg) by mouth two times daily. 180 tablet ctive hydroCHLOROthiazide (HYDRODiuril) 25 mg tablet Indications:Essential (primary) hypertensionTake 1 tablet (25 mg) by mouth in the morning. 90 tablet ctive nitroglycerin (Nitrostat) 0.4 mg SL tablet Indications:Coronary artery disease involving [place] coronary artery of [place] heart with other form of angina pectorisDISSOLVE 1 TABLET UNDER THE TONGUE NEEDED FOR CHEST PAIN- MAY REPEAT EVERY 5 MINUTES IF NEEDED (MAX 3 DOSES.- IF NO RELIEF CALL 911) 25 tablet Discontinued(Reorder) furosemide (Lasix) 40 mg tablet Indications:Essential (primary) hypertensionTake 1 tablet (40 mg) by mouth in the morning. 90 tablet Discontinued(Reorder) hydroCHLOROthiazide (HYDRODiuril) 25 mg tablet Indications:Essential (primary) hypertensionTake 1 tablet (25 mg) by mouth in the morning. 90 tablet Discontinued(Reorder) losartan (Cozaar) 100 mg tablet Indications:Essential (primary) hypertensionTake 1 tablet (100 mg) by mouth in the morning. 90 tablet Discontinued(Reorder) atorvastatin (Lipitor) 80 mg tablet Indications:Mixed hyperlipidemiaTake 1 tablet (80 mg) by mouth once daily in the evening. 90 tablet Discontinued(Reorder) omeprazole (PriLOSEC) [address] capsule Indications:Gastro-esophageal reflux disease without esophagitisTake 1 capsule (20 mg) by mouth once daily as directed. 90 capsule Discontinued(Reorder) cilostazol (Pletal) 100 mg tablet Indications:PVD (peripheral vascular disease)Take 1 tablet (100 mg) by mouth two times daily. 180 tablet Discontinued(Reorder) NIFEdipine XL (Procardia XL) 30 mg 24 hr tablet Indications:Essential hypertensionTake 1 tablet (30 mg) by mouth in the morning. Do not crush, chew, or split. 90 tablet Discontinued(Reorder) isosorbide mononitrate ER (Imdur) 60 mg 24 hr tablet Indications:Coronary artery disease involving [place] coronary artery of [place] heart with other form of angina pectorisTake 1 tablet (60 mg) by mouth once daily as directed. Do not crush or chew. 90 tablet Discontinued(Reorder) ezetimibe (Zetia) 10 mg tablet Indications:Coronary artery disease involving [place] coronary artery of [place] heart with other form of angina pectoris,Mixed hyperlipidemiaTake 1 tablet (10 mg) by mouth once daily as directed. 90 tablet Discontinued(Reorder) metoprolol tartrate (Lopressor) 50 mg tablet Indications:Coronary artery disease involving [place] coronary artery of [place] heart with other form of angina pectorisTake 1 tablet (50 mg) by mouth two times daily. 180 tablet Discontinued(Reorder) spironolactone (Aldactone) 25 mg tablet Indications:Essential hypertensionTake 0.5 tablets (12.5 mg) by mouth once daily as directed. 45 tablet Discontinued(Reorder) atorvastatin (Lipitor) 80 mg tablet Indications:Mixed hyperlipidemiaTake 1 tablet (80 mg) by mouth once daily in the evening. 90 tablet Discontinued(Reorder) cilostazol (Pletal) 100 mg tablet Indications:PVD (peripheral vascular disease)Take 1 tablet (100 mg) by mouth two times daily. 180 tablet Discontinued(Reorder) ezetimibe (Zetia) 10 mg tablet Indications:Mixed hyperlipidemia,Coronary artery disease involving [place] coronary artery of [place] heart with other form of angina pectorisTake 1 tablet (10 mg) by mouth once daily as directed. 90 tablet Discontinued(Reorder) furosemide (Lasix) 40 mg tablet Indications:Essential (primary) hypertensionTake 1 tablet (40 mg) by mouth in the morning. 90 tablet Discontinued(Reorder) hydroCHLOROthiazide (HYDRODiuril) 25 mg tablet Indications:Essential (primary) hypertensionTake 1 tablet (25 mg) by mouth in the morning. 90 tablet Discontinued(Reorder) isosorbide mononitrate ER (Imdur) 60 mg 24 hr tablet Indications:Coronary artery disease involving [place] coronary artery of [place] heart with other form of angina pectorisTake 1 tablet (60 mg) by mouth once daily as directed. Do not crush or chew. 90 tablet Discontinued(Reorder) losartan (Cozaar) 100 mg tablet Indications:Essential (primary) hypertensionTake 1 tablet (100 mg) by mouth in the morning. 90 tablet Discontinued(Reorder) metoprolol tartrate (Lopressor) 50 mg tablet Indications:Coronary artery disease involving [place] coronary artery of [place] heart with other form of angina pectorisTake 1 tablet (50 mg) by mouth two times daily. 180 tablet Discontinued(Reorder) NIFEdipine XL (Procardia XL) 30 mg 24 hr tablet Indications:Essential hypertensionTake 1 tablet (30 mg) by mouth in the morning. Do not crush, chew, or split. 90 tablet Discontinued(Reorder) nitroglycerin (Nitrostat) 0.4 mg SL tablet Indications:Coronary artery disease involving [place] coronary artery of [place] heart with other form of angina pectorisDISSOLVE 1 TABLET UNDER THE TONGUE NEEDED FOR CHEST PAIN- MAY REPEAT EVERY 5 MINUTES IF NEEDED (MAX 3 DOSES.- IF NO RELIEF CALL 911) 25 tablet Discontinued(Reorder) omeprazole (PriLOSEC) [address] capsule Indications:Gastro-esophageal reflux disease without esophagitisTake 1 capsule (20 mg) by mouth once daily as directed. 90 capsule Discontinued(Reorder) spironolactone (Aldactone) 25 mg tablet Indications:Essential hypertensionTake 0.5 tablets (12.5 mg) by mouth once daily as directed. 45 tablet Discontinued(Reorder) Active Problems ProblemNoted DateDiagnosed DateSleep apnea05/14/2023 Overview (05/14/2023): bipap use Morbid bsfowwm4909/30/2022ngina hmqyilzj83/25/2022ardiovascular stress test /25/1050Vjsrcuefrbat15/25/2022oronary qtuneecwbqjxdwrd39/25/2022 Essential dtqmsdykrgfl52/25/7808Hxgmcledbjjywu37/25/2022Mild chronic obstructive pulmonary nepqrls4407/18/2022holesteatoma of right ear05/29/2021 Encounters DateTypeDepartmentCare VxbhStaouuphtqi41/26/2025 2:20 PM ESTOffice Visit [facility] [address] [place] [address] Marion Gregory CNP Leg pain, bilateral (Primary Dx); Mixed hyperlipidemia; Coronary artery disease involving [place] coronary artery of [place] heart with other form of angina pectoris; Essential (primary) hypertension; Essential hypertension; Gastro-esophageal reflux disease without esophagitis; PVD (peripheral vascular disease)10/13/2025[facility] [address] [place] [address] Priiclla Malin MA Mixed hyperlipidemia; PVD (peripheral vascular disease); Coronary artery disease involving [place] coronary artery of [place] heart with other form of angina pectoris; Essential (primary) hypertension; Essential hypertension; Gastro-esophageal reflux disease without /01/2025[facility] [address] [place] [address] Ansley Montano MA Coronary artery disease involving [place] coronary artery of [place] heart with other form of angina pectoris; Mixed hyperlipidemia; Essential hypertensionfrom Last 3 Months Immunizations ImmunizationAdministration DatesNext DueInfluenza, injectable, MDCK, preservative free, gmnxsqupgxkr91/07/2022Unspecified Sars-Cov-2 Vaccination 12/31/2021,04/18/2021,03/12/2021 Family History Medical HistoryRelationNameCommentsCoronary artery diseaseFatherDiabetesFather HypertensionFatherDiabetesMotherHypertensionMotherRelationNameStatusComments FatherDeceasedMotherDeceased Social History Tobacco UseTypesPacks/DayYears UsedDateSmoking Tobacco: Every DayCigarettes Smokeless Tobacco: NeverAlcohol UseStandard Drinks/WeekCommentsYes0 (1 standard drink = 0.6 oz pure alcohol)occasionalUT Safety & EnvironmentAnswerDate Recorded Fear of Current or Ex-PartnerNot on file01/15/2024Emotionally AbusedNot on file 4Physically AbusedNot on file01/15/2024Sexually AbusedNot on file 4Physically or Sexually AbusedNot on file01/15/2024Sex and Gender InformationValueDate RecordedSex Assigned at NextrBlii09/24/2025 3:54 PM EST Legal OsnTfyn6505/22/2022 11:44 PM EDTGender KpatbibcOcdb09/24/2025 3:54 PM EST Sexual OrientationHeterosexual or Mkottmmi73/24/2025 3:54 PM EST Last Filed Vital Signs Vital SignReadingTime TakenCommentsBlood Tntfocal557/6710/19/2025 2:38 PM EST Cddet480210/19/2025 2:38 PM ESTTemperature--Respiratory Ixzh650311/29/2020 3:06 PM ESTOxygen Kexfbmctef85%10/19/2025 2:38 PM ESTInhaled Oxygen Concentration-- Htcxde044 kg (316 lb)05/20/2024 3:06 PM BUHBercbi407.3 cm (5' 11 )10/19/2025 2:38 PM ESTBody Mass Index44.0705/20/2024 3:06 PM EDT Plan of Treatment Health MaintenanceDue DateLast DoneCommentsCT Qxwimzisbrzd53/28/1974Colonoscopy 1973Colorectal Cancer Owbmzsotd50/28/1974FIT-DNA1973FIT1973 FOBT1973 2061Besadcutpiwla37/28/1974Depression Suzlwaanq31/28/1986Hepatitis B Vaccines (1 of 3 - 19+ 3-dose series)1992Pneumococcal Vaccine: Pediatrics (0 to 5 Years) and At-Risk Patients (6 to 64 Years) (1 of 2 - PCV)1992 Adult Gasgrvx8312/21/1995Zoster Vaccines (1 of 2)4COVID-19 Vaccine ( - season)502/05/2022, 12/31/2021, 04/18/2021, Additional history existsInfluenza Vaccine (#1)502/05/2022HIB VaccinesAged OutNo longer eligible based on patient's age to complete this topicHPV VaccinesAged OutNo longer eligible based on patient's age to complete this topicIPV VaccinesAged OutNo longer eligible based on patient's age to complete this topicMeningococcal B VaccineAged OutNo longer eligible based on patient's age to complete this topicMeningococcal VaccineAged OutNo longer eligible based on patient's age to complete this topicRotavirus VaccinesAged OutNo longer eligible based on patient's age to complete this topic Insurance
--- OUTSIDE RECORDS SUMMARY | 2025-10-19 15:41 | XMS_ITS | Encounter Summary ---
Author Organization [facility] Address [address] [place] [address] Care Team Providers Care Yardage Control Clerk Name Role Phone Unavailable Primary Care Provider Unavailabl e Reason for Visit * ReasonOnset DateCommentsMed Opuuxv1810/13/2025 Encounter Details DateTypeDepartmentCare Team (Latest Contact Info)Pcfniluewbx65/20/2025Refill [facility] [place] [address] [place] [address] Pricilla Malin MA Mixed hyperlipidemia; PVD (peripheral vascular disease); Coronary artery disease involving [place] coronary artery of [place] heart with other form of angina pectoris; Essential (primary) hypertension; Essential hypertension; Gastro-esophageal reflux disease without esophagitis Social History Tobacco UseTypesPacks/DayYears UsedDateSmoking Tobacco: Every DayCigarettes Smokeless Tobacco: NeverAlcohol UseStandard Drinks/WeekCommentsYes0 (1 standard drink = 0.6 oz pure alcohol)occasionalUT Safety & EnvironmentAnswerDate Recorded Fear of Current or Ex-PartnerNot on file01/15/2024Emotionally AbusedNot on file 4Physically AbusedNot on file01/15/2024Sexually AbusedNot on file 4Physically or Sexually AbusedNot on file01/15/2024Sex and Gender InformationValueDate RecordedSex Assigned at UpdfvHnle43/24/2025 3:54 PM EST Legal VwmOvtg8805/22/2022 11:44 PM EDTGender CpnutrhmEtww44/24/2025 3:54 PM EST Sexual OrientationHeterosexual or Ryzwoimz40/24/2025 3:54 PM ESTdocumented as of this encounter Plan of Treatment Not on file documented as of this encounter Visit Diagnoses Diagnosis Mixed hyperlipidemia PVD (peripheral vascular disease) Unspecified peripheral vascular disease Coronary artery disease involving [place] coronary artery of [place] heart with other form of angina pectoris Essential (primary) hypertension Unspecified essential hypertension Essential hypertension Unspecified essential hypertension Gastro-esophageal reflux disease without esophagitis documented in this encounter
--- OUTSIDE RECORDS SUMMARY | 2025-10-19 15:42 | XMS_ITS | Clinical Summary ---
Author Organization [facility] Address [id number] [address] [place] [address] Care Team Providers Care Dog And Cat Food Cook Name Role Phone Pete Masterson MD Primary Care Provider [phone] Allergies No known active allergies Medications MedicationSigDispense QuantityRefillsLast FilledStart DateEnd DateStatus aspirin 81 mg chewable tablet daily.Active atorvastatin (LIPITOR) 80 mg tablet Indications:hyperlipidemiaTake 80 mg by mouth daily Indications: excessive fat in the blood. 02/24/2021ctive furosemide (LASIX) 40 mg tablet Indications:edemaTake 40 mg by mouth daily Indications: visible water retention. 02/27/2021ctive hydroCHLOROthiazide (HYDRODIURIL) 25 mg tablet Indications:edema,hypertensionTake 25 mg by mouth daily Indications: visible water retention, high blood pressure. 02/08/2021ctive losartan (COZAAR) 100 mg tablet Indications:hypertensionTake 100 mg by mouth daily Indications: high blood pressure. 01/20/2021ctive metoprolol tartrate (LOPRESSOR) 25 mg tablet Indications:hypertensionTake 25 mg by mouth 2 (two) times a day Indications: high blood pressure. 02/16/2021ctive isosorbide mononitrate (IMDUR) 30 mg 24 hr tablet Indications:prevention of anginal pain in coronary artery diseaseTake 30 mg by mouth daily Indications: prevention of anginal chest pain associated with coronary artery disease. 02/08/2021ctive NIFEdipine XL (PROCARDIA XL) 60 mg 24 hr tablet Indications:hypertensionTake 60 mg by mouth daily Indications: high blood pressure. 12/31/2020ctive omeprazole (PriLOSEC) 20 mg capsule Take 20 mg by mouth daily.01/01/2021ctive cilostazoL (PLETAL) 100 mg tablet Take 100 mg by mouth 2 (two) times a day. Heart stent Active nitroglycerin (NITROSTAT) 0.[address] 0.3 mg under the tongue every 5 (five) minutes as needed for chest pain. Active albuterol (PROVENTIL HFA;VENTOLIN HFA) 90 mcg/actuation inhaler INHALE 2 PUFFS BY MOUTH EVERY 4 HOURS NEEDED SHORTNESS OF UYVOUT1707/26/2021 Active nicotine (NICODERM CQ) 21 mg/24 hr apply 1 (ONE) patch EVERY DAY (on in the morning, off in the evening)07/26/2021 Active nicotine polacrilex (NICORETTE) 2 mg gum nicotine (polacrilex) 2 mg gum chew 1 (ONE) piece(s) of gum EVERY 2 HOURS DIRECTEDActive nicotine polacrilex (NICORETTE) 4 MG gum chew 1 (ONE) piece EVERY HOUR NEEDED for nicotine craving max 16 per day 07/26/2021ctive SPIRIVA RESPIMAT 2.5 mcg/actuation mist INHALE 2 PUFFS BY MOUTH EVERY DAY07/26/2021ctive CIPRODEX otic suspension 08/06/2021ctive Active Problems ProblemNoted DateDiagnosed DateEssential jdembzqemhcf11/14/2021Hyperlipidemia 08/07/2021Mild chronic obstructive pulmonary kmbgbos8808/07/2021oronary cwqnamtdkgszjmbw83/14/2021ardiovascular stress test zmojjxkw55/14/2021 Cholesteatoma of right ear05/29/2021leep apnea Overview (08/07/2021): bipap use Obesity Family History Medical HistoryRelationNameCommentsDiabetesBrotherDiabetesFatherHeart disease FatherDiabetesMotherDiabetesSisterAnesthesia problemsNeg HxRelationNameStatus CommentsBrotherAliveDaughterAliveFatherDeceased (Age 58)MotherDeceased (Age 55) SisterAliveSonAlive Social History Tobacco UseTypesPacks/DayYears UsedDateSmoking Tobacco: Every DayCigarettes1.530 Smokeless Tobacco: Never Tobacco Cessation:Ready to Q uit: No Alcohol UseStandard Drinks/WeekCommentsNot Currently0 (1 standard drink = 0.6 oz pure alcohol)rarelyChildcareAnswerDate BhvgkdmiAjmgoclnqJfjmqou25/23/2021 EmploymentAnswerDate ApgneyhwGrarjchzvoOjmawpx38/23/2021urpose - LifeAnswerDate RecordedPurpose and direction in jzewAooyekx51/23/2021ex and Gender Information ValueDate RecordedSex Assigned at BirthNot on fileLegal WmpNryc7102/13/2021 1:51 PM EDTGender IdentityNot on fileSexual OrientationNot on file Last Filed Vital Signs Vital SignReadingTime TakenCommentsBlood Mithtimm598/6809 11:50 AM EDT Mbleo184908/21/2021 11:55 AM TYTRbagqtrhxnt93.1 ??C (98.7 ??F)04/24/2022 3:32 PM EDTRespiratory Kbgc933208/21/2021 11:55 AM EDTOxygen Rnzhwvavkd91%08/21/2021 11:55 AM EDTInhaled Oxygen Concentration--Onixbj640.5 kg (312 lb)04/24/2022 3:32 PM OZDWkgfdh520.6 cm (5' 11.5 )04/24/2022 3:32 PM EDTBody Mass Index42.9106 3:32 PM EDT Plan of Treatment Health MaintenanceDue DateLast DoneCommentsDepression Halkkrhuj06/28/1986Tobacco Ixleyuzcp46/28/1986Adult BMI Mqmqlmtvt82/28/1992DTaP,Tdap and Td Vaccines (1 - Tdap)1992Zoster (Shingles) Vaccine (1 of 2)4COVID-19 Vaccine (4 - 2024- season)/05/2022, 04/18/2021, 03/12/2021Influenza Vaccine /tatin Use: Tnfouxsqnuwzqv27/12/202511/ Medical Devices ImplantedTypeAreaManufacturerDevice IdentifierShelf Expiration DateModel / Serial / LotMesh Pco Vntrl Ptch 6.6cm Rpl [id number] - Sna - [id number] Implanted:Qty: 1 on 04/03/2021 [facility] AbdomenMEDTRONIC [id number] / NA / [id number] Insurance Care Teams Team MemberRelationshipSpecialtyStart DateEnd Date Pete Masterson MD PCP - GeneralFamily Medicine02/13/21
--- OUTSIDE RECORDS SUMMARY | 2025-10-19 15:42 | XMS_ITS | Clinical Summary ---
Author Organization [facility] Address [address] [place] [address] Care Team Providers Care Director Paid Media Name Role Phone Pete Masterson MD Primary Care Provider [phone] Eleonora Hassan DO Unavailable [phone] Social History Tobacco UseTypesPacks/DayYears UsedDateSmoking Tobacco: Never AssessedSex and Gender InformationValueDate RecordedSex Assigned at BirthNot on fileLegal Sex Male11/04/2023 9:11 AM ESTGender IdentityNot on fileSexual OrientationNot on file Plan of Treatment Not on file Insurance Care Teams Team MemberRelationshipSpecialtyStart DateEnd Date Pete Masterson MD PCP - GeneralFamily Medicine02/16/24 Eleonora Hassan DO [address] [place] [address] Referring PhysicianNeurology02/11/24
--- OUTSIDE RECORDS SUMMARY | 2025-10-19 15:42 | XMS_ITS | CCD ---
Author Organization [facility] Care Team Providers Care Porcelain Enamel Sprayer Name Role Phone PHYSICIAN, DEFAULT Unavailable Unavailable PHYSICIAN, DEFAULT Unavailable Unavailable PETE JORGE Unavailable Unavailable PHYSICIAN, DEFAULT Unavailable Unavailable PHYSICIAN, DEFAULT Unavailable Unavailable PETE JORGE Unavailable Unavailable HERBERT KATZ Consulting Unavailable LUISITO, DR PETE Alvarenga Primary Care Unavailable HERBERT KATZ Admitting Unavailable HERBERT KATZ Attending Unavailable SE PRICE Attending Unavailable SE PRICE Admitting Unavailable CINDY, DR JORDON Villalba Consulting Unavailable LUISITO, DR PETE Alvarenga Primary Care Unavailable SE PRICE Consulting Unavailable HoaNikki rodriguez Unavailable JUAN MORRIS Attending Unavailable JUAN MORRIS Attending Unavailable JUAN MORRIS Attending Unavailable Pete Jorge MD Primary Care Provider Eleonora Hassan DO Unavailable Allergies Allergy ClassificationReported Allergen(s)Allergy TypeDate of OnsetReaction(s) Facility (1 source)LatexDrug allergy (disorder)14-77-2240OLWLlvM[facility] Medications Current Medications MedicationDrug Class(es)DatesSig (Normalized)Sig (Original)aspirin 81 mg chewable tablet (1 source)Platelet Aggregation Inhibitor, Nonsteroidal Anti-inflammatory Drug take 1 tablet by mouth in the morningAspirin Low Dose 81 MG CHEW AND SWALLOW 1 (ONE) TABLET BY MOUTH IN THE MORNING Oral for 30 Days Activeatorvastatin 80 mg oral tablet (1 source)HMG-CoA Reductase InhibitorAtorvastatin Calcium 80 MG Oral for 30 Days Activecilostazol 100 mg oral tablet (1 source)Phosphodiesterase 3 InhibitorCilostazol 100 MG Oral for 30 Days Active ezetimibe 10 mg oral tablet (1 source)Dietary Cholesterol Absorption Inhibitortake 1 tablet by mouth in the morningEzetimibe 10 MG TAKE 1 TABLET BY MOUTH IN THE MORNING Oral for 30 Days ActivehydroCHLOROthiazide 25 mg oral tablet (1 source)Thiazide DiureticStart: 93-75-7126lfdf 1 tablet by mouth every twenty- four hourshydroCHLOROthiazide 25 MG 1 tablet Orally Once a day for 14 days Dec, Activelosartan potassium 50 mg oral tablet (1 source)Angiotensin 2 Receptor BlockerStart: 85-94-1238bigy 1 tablet by mouth every twenty-four hoursLosartan Potassium 50 MG 1 tablet Orally Once a day for 14 days Dec, Activemetoprolol tartrate 25 mg oral tablet (1 source)beta-Adrenergic BlockerMetoprolol Tartrate 25 MG Oral for 30 Days ActiveNIFEdipine 60 mg osmotic 24 hr extended release oral tablet (1 source)Dihydropyridine Calcium Channel Blockertake 1 tablet by mouth once dailyNIFEdipine ER Osmotic Release 60 MG TAKE 1 TABLET BY MOUTH DAILY Oral for 30 Days ActiveNitro Sublingual 0.4 0.4mg (1 source)Nitro Sublingual 0.4 0.4mg 1 Sublingual Every 5min x3 Activeomeprazole 20 mg delayed release oral capsule (1 source)Proton Pump Inhibitortake 1 tablet by mouth in the morningOmeprazole 20 MG TAKE 1 TABLET BY MOUTH IN THE MORNING Oral for 30 Days Active spironolactone 25 mg oral tablet (1 source)Aldosterone AntagonistSpironolactone 25 MG Oral for 8 Days Active Completed/Discontinued Medications MedicationDrug Class(es)DatesSig (Normalized)Sig (Original)Dexamethasone / Neomycin / Polymyxin B (1 source)Aminoglycoside Antibacterial, Polymyxin-class Antibacterial, CorticosteroidStart: 45-03-9977ujqs 2 drop(s) into the eye(s) three times daily as neededMaxitrol 3.5-58225-1.1 2 drops into affected eye Ophthalmic Three times a day for 7 days Dec, Not-Taking/PRN Problems Active Problems Problem ClassificationProblemDateDocumented DateEpisodic/ChronicChronic obstructive pulmonary disease and bronchiectasis (4 sources)Chronic obstructive pulmonary disease, unspecified; Translations: [COPD UNSPECIFIED]Onset: 29-47-6857JbfmyxkYhxfvgdp atherosclerosis and other heart disease (8 sources)Atherosclerotic heart disease of [place] coronary artery without angina pectoris; Translations: [Atherosclerotic heart disease of [place] coronary artery with other forms of angina pectoris]Onset: 94-73-4212TmunwnfSkynmsjx atherosclerosis and other heart disease (2 sources)Presence of coronary angioplasty implant and graft; Translations: [Presence of coronary angioplastyimplant and graft]Onset: 71-16-2685Zedyymlf Disorders of lipid metabolism (2 sources)Mixed hyperlipidemia; Translations: [Mixed hyperlipidemia]Onset: 32-06-9943DmacxbzYyrrdjzrsd disorders (2 sources)Gastro-esophageal reflux disease without esophagitis; Translations: [Gastro-esophageal reflux disease without esophagitis]Onset: 43-39-6303Lxjvlsy Essential hypertension (2 sources)Essential (primary) hypertension; Translations: [Essential (primary) hypertension]Onset: 49-33-0948KnbsxatPivkq lower respiratory disease (2 sources)Shortness of breath; Translations: [Shortness of breath]Onset: 92-30-3306EycfhyyaFrkkp nutritional; endocrine; and metabolic disorders (2 sources)Morbid (severe) obesity due to excess calories; Translations: [Morbid (severe) obesity due to excess calories]Onset: 19-40-2196PmcncnvVbtgciuleq and visceral atherosclerosis (2 sources)Peripheral vascular disease, unspecified; Translations: [Peripheral vascular disease, unspecified]Onset: 69-59-9716HivepebVnihxsff codes; unclassified (2 sources)Localized edema; Translations: [Localized edema]Onset: 05-20-2024 Episodic Past or Other Problems Problem ClassificationProblemDateDocumented DateEpisodic/ChronicUnclassified (1 source)Exposure to COVID-19 virus Z20.822Viral infection (1 source)COVID-19 Results Test NameValueInterpretationReference UeuwaXgacpiqs17pn 51-94-271118Oqshlcsgq echo performed on 06/22/2024: MD Ansley Friedman MA His echo was normal. I did not see blood work I ordered at last visit. Patient informed and I reminded him to have labs drawn. He stated he has the orders.[facility] HospitalCA ECHO DOPPLER COMPLETEon 41-23-7321Rhm [place] [address] Cardiology Report Signed Patient: SILVERIO CAGLE MR#: [id number] : 1975 Acct:[id number] Age/Sex: 48 / M ADM Date: 06/22/24 Loc: CARD Attending Dr: JUAN MORRIS Ordering Physician: JUAN MORRIS Date of Service: 06/22/24 Procedure(s): CA echo doppler complete Accession Number(s): [id number] cc: JUAN MORRIS; Pete Jorge M.D. Patient Name: SILVERIO CAGLE MR#: [id number] : 1975 Exam Date: 06/22/2024 Ordering Doctor: DR JUAN MORRIS M.D. ECHOCARDIOGRAM REPORT PROCEDURE: CA ECHO DOPPLER COMPLETE INDICATIONS: Dyspnea COMPARISON: None. DESCRIPTION: COMPLETE ECHOCARDIOGRAM Real-time transthoracic echocardiography with 2D, M-mode, spectral and color flow Doppler performed. QUALITY: Technical quality was good. LEFT VENTRICLE: Normal chamber size. Borderline left ventricular hypertrophy. Global left ventricular systolic function is normal. LV EF: Calculated left ventricular ejection fraction is 55%. DIASTOLIC: Normal diastolic function. ATRIAL SEPTUM: LEFT ATRIUM: Normal chamber size. RIGHT ATRIUM: Mild dilatation. RIGHT VENTRICLE: Normal chamber size. Normal right ventricular systolic function. TRICUSPID VALVE: Normal mobility and thickness. No stenosis with trivial regurgitation. No evidence of pulmonary hypertension. RVSP 22 mmHg MITRAL VALVE: Normal mobility and thickness. No mitral valve prolapse. No evidence of mitral valve stenosis. There is no mitral annular calcification. No mitral regurgitation. AORTIC VALVE: Normal trileaflet appearance. No visible sclerosis. Normal leaflet mobility. No evidence of aortic valve stenosis. No aortic regurgitation. AORTIC ROOT: Normal diameter and appearance. PULMONIC VALVE: Normal thickness and mobility. No stenosis. No regurgitation. PERICARDIUM: No evidence of pericardial effusion. IVC: Collapses with inspirations. Normal size. PLEURA: CONCLUSION: 1. The left ventricle is normal in size and exhibits normal systolic function. LVEF is 55%. 2. Normal right ventricular size and systolic function. 3. Normal diastolic function. 4. No significant valvular dysfunction. 5. Normal right-sided pressures. Adult Echocardiography Procedure Report Left Ventricle LVEDD (3.7 - 5.6 cm): 4.38 cm LVESD (2.2 - 4.0 cm): 2.99 cm LVIVS thickness (0.6 - 1.2 cm): 1.18 cm LVPW thickness (0.5 - 1.0 cm): 1.01 cm e': 0.09 m/s E - e': 3.99 LVOT Max Gradient: 2.75 mm[Hg], 2.85 mm[Hg] LVOT Area (cm2): 0.84 m/s Peak Velocity (LVOT): 0.83 m/s, 0.84 m/s Mean Velocity (LVOT): 0.58 m/s LVOT Diameter 2.14 cm Left Ventricular Ejection Fraction: 55 % Left Atrium LA Volume Index (2D A2C): 21.25 ml/m2 Left Atrium Systolic Dimension: 3.38 cm Mitral Valve MV E to A Ratio: 0.97 Mitral Valve A-Wave Peak Velocity: 0.37 m/s Mitral Valve E-Wave Peak Velocity: 0.36 m/s Right Ventricle RV Internal Diastolic Dimension: 3.57 cm Aorta AO Root Diam: 2.98 cm Aortic Valve AoV Area (Peak Hugo): 2.45 cm2, 2.43 cm2 AoV Area (VTI): 2.58 cm2, 2.57 cm2 Peak Velocity(Antegrade Flow): 1.22 m/s Peak Gradient(Antegrade Flow): 5.99 mm[Hg] Mean Velocity(Antegrade Flow): 0.80 m/s Mean Gradient(Antegrade Flow): 2.91 mm[Hg] Velocity Time Integral: 21.39 cm Tricuspid Valve Peak Velocity (Regurgitant Flow): 2.20 m/s, 2.01 m/s, 2.15 m/s Pulmonic Valve Mean Gradient: 1.43 mm[Hg] Mean Velocity: 0.56 m/s Peak Velocity: 0.81 m/s, 0.90 m/s Peak Gradient: 3.26 mm[Hg], 2.62 mm[Hg] Right Atrium Right Atrium Systolic Pressure: 66.15 ml, 66.15 ml Dictated by: Juan Morris M.D. on 06/22/2024 at 18:18 Approved by: Juan Morris M.D. on 06/22/2024 at 18:20 Dictated By: JUAN MORRIS (more content not included)...TBHRadiology, Radiologist, - 06/22/2024 [facility] [place] [id number] Cardiology Report Signed Patient: SILVERIO CAGLE MR#: [id number] : 1975 Acct:[id number] Age/Sex: 48 / M ADM Date: 06/22/24 Loc: CARD Attending Dr: JUAN MORRIS Ordering Physician: JUAN MORRIS Date of Service: 06/22/24 Procedure(s): CA echo doppler complete Accession Number(s): [id number] cc: JUAN MORRIS; Pete Jorge M.D. Patient Name: SILVERIO CAGLE MR#: [id number] : 1975 Exam Date: 06/22/2024 Ordering Doctor: DR JUAN MORRIS M.D. ECHOCARDIOGRAM REPORT PROCEDURE: CA ECHO DOPPLER COMPLETE INDICATIONS: Dyspnea COMPARISON: None. DESCRIPTION: COMPLETE ECHOCARDIOGRAM Real-time transthoracic echocardiography with 2D, M-mode, spectral and color flow Doppler performed. QUALITY: Technical quality was good. LEFT VENTRICLE: Normal chamber size. Borderline left ventricular hypertrophy. Global left ventricular systolic function is normal. LV EF: Calculated left ventricular ejection fraction is 55%. DIASTOLIC: Normal diastolic function. ATRIAL SEPTUM: LEFT ATRIUM: Normal chamber size. RIGHT ATRIUM: Mild dilatation. RIGHT VENTRICLE: Normal chamber size. Normal right ventricular systolic function. TRICUSPID VALVE: Normal mobility and thickness. No stenosis with trivial regurgitation. No evidence of pulmonary hypertension. RVSP 22 mmHg MITRAL VALVE: Normal mobility and thickness. No mitral valve prolapse. No evidence of mitral valve stenosis. There is no mitral annular calcification. No mitral regurgitation. AORTIC VALVE: Normal trileaflet appearance. No visible sclerosis. Normal leaflet mobility. No evidence of aortic valve stenosis. No aortic regurgitation. AORTIC ROOT: Normal diameter and appearance. PULMONIC VALVE: Normal thickness and mobility. No stenosis. No regurgitation. PERICARDIUM: No evidence of pericardial effusion. IVC: Collapses with inspirations. Normal size. PLEURA: CONCLUSION: 1. The left ventricle is normal in size and exhibits normal systolic function. LVEF is 55%. 2. Normal right ventricular size and systolic function. 3. Normal diastolic function. 4. No significant valvular dysfunction. 5. Normal right-sided pressures. Adult Echocardiography Procedure Report Left Ventricle LVEDD (3.7 - 5.6 cm): 4.38 cm LVESD (2.2 - 4.0 cm): 2.99 cm LVIVS thickness (0.6 - 1.2 cm): 1.18 cm LVPW thickness (0.5 - 1.0 cm): 1.01 cm e': 0.09 m/s E - e': 3.99 LVOT Max Gradient: 2.75 mm[Hg], 2.85 mm[Hg] LVOT Area (cm2): 0.84 m/s Peak Velocity (LVOT): 0.83 m/s, 0.84 m/s Mean Velocity (LVOT): 0.58 m/s LVOT Diameter 2.14 cm Left Ventricular Ejection Fraction: 55 % Left Atrium LA Volume Index (2D A2C): 21.25 ml/m2 Left Atrium Systolic Dimension: 3.38 cm Mitral Valve MV E to A Ratio: 0.97 Mitral Valve A-Wave Peak Velocity: 0.37 m/s Mitral Valve E-Wave Peak Velocity: 0.36 m/s Right Ventricle RV Internal Diastolic Dimension: 3.57 cm Aorta AO Root Diam: 2.98 cm Aortic Valve AoV Area (Peak Hugo): 2.45 cm2, 2.43 cm2 AoV Area (VTI): 2.58 cm2, 2.57 cm2 Peak Velocity(Antegrade Flow): 1.22 m/s Peak Gradient(Antegrade Flow): 5.99 mm[Hg] Mean Velocity(Antegrade Flow): 0.80 m/s Mean Gradient(Antegrade Flow): 2.91 mm[Hg] Velocity Time Integral: 21.39 cm Tricuspid Valve Peak Velocity (Regurgitant Flow): 2.20 m/s, 2.01 m/s, 2.15 m/s Pulmonic Valve Mean Gradient: 1.43 mm[Hg] Mean Velocity: 0.56 m/s Peak Velocity: 0.81 m/s, 0.90 m/s Peak Gradient: 3.26 mm[Hg], 2.62 mm[Hg] Right Atrium Right Atrium Systolic Pressure: 66.15 ml, 66.15 ml Dictated by: Juan Morris M.D. on 06/22/2024 at 18:18 Approved by: Juan Morris M.D. on 06/22/2024 at 18:20 Dictated By: JUAN MORRIS Signed By: 06/22/241821 DD/ 19 TD/TT: Body Piercer: ALFRED HealthcareRadiology Study observation (narrative)ALFRED HealthcareCA ECHO DOPPLER COMPLETEOrdered By: Radiologist Radiology on [id number] Work Phone: Office [facility] [phone]-up [id number] Silverio Cagle 1975 M Date Provider Department Center 05/20/2024 JUAN NGUYEN Family History Problem Relation Age of Onset Diabetes Mother Hypertension Mother Diabetes Father Hypertension Father Coronary artery disease Father Family Status - Relation Status Age at Mother Father Level of Service:[address]37 [place] OFFICE/OUTPATIENT ESTABLISHED MOD [facility] Quick Testingon 12-01-2023 SARS-CoV-2 (COVID-19) RNA SINDY+probe Ql (Unsp spec)PositiveFormerly [facility] [employer] Other COVID + FLU Quick TestingNegativeNocolumbia regional hospital [employer] Other Office [facility] [id number]-up [id number] Silverio Cagle 1975 M Date Provider Department Center 11/12/2023 JUAN NGUYEN VIKTORIA Rios [facility] Family History Problem Relation Age of Onset Diabetes Mother Hypertension Mother Diabetes Father Hypertension Father Coronary artery disease Father Family Status - Relation Status Age at Mother Father Level of Service:58496 [place] OFFICE/OUTPATIENT ESTABLISHED LOW MDM [facility] HospitalOffice [facility] [id number]-up visit [id number] Silverio Cagle 1975 M Date Provider Department Center 09/26/2023 JUAN NGUYEN VIKTORIA Saenz Family History Problem Relation Age of Onset Diabetes Mother Hypertension Mother Diabetes Father Hypertension Father Coronary artery disease Father Family Status - Relation Status Age at Mother Father Level of Service:57579 [place] OFFICE/OUTPATIENT ESTABLISHED MOD MDM 30-39 MIN Reason for Visit and Comments: Follow-up [397114][facility] HospitalHEMOGLOBINon 02-77-6683Nbxlihqswm (Bld) [Mass/Vol]13.5 g/dLCritically low14.0-18.0[facility] HospitalComment on above:Performed By: #### HGB #### [facility] [address] [place] [address] Dr. Martínez BacaXR CHEST 2 Von [id number] CHEST 2 VEXAMINATION: XR CHEST 2 V HISTORY: Chronic obstructive [...] Electronically authenticated by: JORDON WHITE Date: 2022-04-10 12:46NormSt. [facility] AUTO DIFFon 02-19-4018GBRC #0.0 103/ulNormal0.0-0.1[facility] Board[facility] HospitalComment on above:Performed By: #### CBC #### [facility] [address] [place] [address] Nikhil KarenBasophils/100 WBC (Bld)0.5 %Normal0.2-2.0[facility] Comment on above:Performed By: #### CBC #### [facility] [address] [place] [address] Nikhil KarenEO #0.2 103/ulNormal0.0-0.7The [facility] HospitalComment on above: Performed By: #### CBC #### [facility] [address] [place] [address] Nikhil KarenEosinophils/100 WBC (Bld)2.9 %Normal0.9-7.0[facility] Comment on above:Performed By: #### CBC #### [facility] [address] [place] [address] Nikhil KarenErythrocyte distribution width (RBC) [Ratio]12.8 %Xzwfvt91.0-15.0The [facility] HospitalComment on above:Performed By: #### CBC #### [facility] [address] [place] [address] Nikhil KarenHematocrit (Bld) [Volume fraction]41.2 %Critically low42.0-54.0The [facility] HospitalComment on above:Performed By: #### CBC #### [facility] [address] [place] [address] Nikhil KarenHemoglobin (Bld) [Mass/Vol]13.9 g/dLCritically low14.0-18.0The [facility] HospitalComment on above:Performed By: #### CBC #### [facility] [address] [place] [address] Nikhil KarenIG #0.05 10e3/ulCritically high0.00-0.03The [facility] HospitalComment on above:Performed By: #### CBC #### [facility] [address] [place] [address] Nikhil KarenIG %0.9 %Critically high0.0-0.5The [facility] HospitalComment on above:Performed By: #### CBC #### [facility] [address] [place] [address] Nikhil KarenLYMPH #1.6 103/ulNormal1.2-3.8The [facility] HospitalComment on above: Performed By: #### CBC #### [facility] [address] [place] [address] Nikhil KarenLymphocytes/100 WBC (Bld)26.6 %Rzsnfw95.5-60.0[facility] Comment on above:Performed By: #### CBC #### [facility] [address] [place] [address] Nikhil KarenMANUAL DIFF REQNONormalThe [facility] HospitalComment on above: Performed By: #### CBC #### [facility] [address] [place] [address] Nikhil KarenMCH (RBC) [Entitic mass]29.1 shLhpibw63.9-34.0The [facility] Comment on above:Performed By: #### CBC #### [facility] [address] [place] [address] Nikhil NegronMCHC (RBC) [Mass/Vol]33.7 g/yLZspyuq59.9-35.2[facility] Comment on above:Performed By: #### CBC #### [facility] [address] [place] [address] Nikhil NegronMCV (RBC) [Entitic vol]86.4 hEJpkzpu66.0-94.0The [facility] Comment on above:Performed By: #### CBC #### [facility] [address] [place] [address] Nikhil NegronMONO #0.6 103/ulNormal0.3-0.8The [facility] HospitalComment on above: Performed By: #### CBC #### [facility] [address] [place] [address] Nikhil KarenMonocytes/100 WBC (Bld)9.7 %Normal1.7-12.0[facility] Comment on above:Performed By: #### CBC #### [facility] [address] [place] [address] Nikhil WebberenNEUT #3.5 103/ulNormal1.4-6.5The [facility] HospitalComment on above: Performed By: #### CBC #### [facility] [address] [place] [address] Nikhil KarenNeutrophils/100 WBC (Bld)59.4 %Etcqpr06.0-75.0[facility] Comment on above:Performed By: #### CBC #### [facility] [address] [place] [address] Nikhil KarenPlatelet mean volume (Bld) [Entitic vol]9.7 fLNormal9.5-13.5The [facility] HospitalComment on above:Performed By: #### CBC #### [facility] [address] [place] [address] Nikhil UyuejHRD025 103/ivKnxfcz977-339HomMercy Health St. Elizabeth Boardman HospitalComment on above: Performed By: #### CBC #### [facility] [address] [address] Nikhil KarenRBC4.77 106/ulNormal4.70-6.10The [facility] HospitalComment on above: Performed By: #### CBC #### [facility] [address] [address] Nikhil KarenWBC5.9 103/ulNormal4.0-11.0[facility] HospitalComment on above: Performed By: #### CBC #### [facility] [address] [place] [address] Nikhil KarenLIPID PROFILEon 67-20-2638YRLJ-HDL RATIO NORMSDunlap Memorial HospitalComment on above:Result Comment: 3.3 - 4.4 LOW RISK 4.4 - 7.1 AVERAGE RISK 7.1 - 11.0 MODERATE RISK >11.0 HIGH RISKPerformed By: #### LIVER, BMP, LIPID #### [facility] [address] [place] [address] Nikhil KarenCholesterol [Mass/Vol]117 mg/dLNormal<=200[facility] Comment on above:Performed By: #### LIVER, BMP, LIPID #### [facility] [address] [place] [address] Nikhil KarenCholesterol in HDL [Mass/Vol]34 mg/dLSelect [facility] Comment on above:Performed By: #### LIVER, BMP, LIPID #### [facility] [address] [place] [address] Nikhil KarenCholesterol in LDL [Mass/Vol]64.2 mg/dLSelect Medical [facility] Comment on above:Performed By: #### LIVER, BMP, LIPID #### [facility] [address] [place] [address] Nikhil KarenCholesterol.total/Cholesterol in HDL [Mass ratio]3.4 {ratio}Normal The [facility] HospitalComment on above:Performed By: #### LIVER, BMP, LIPID #### [facility] [address] [address] Nikhil KarenHDL NORMAL> or = 60 mg/dl - LOW CARDIOVASCULAR RISK <40 mg/dl - HIGH CARDIOVASCULAR RISKSelect Medical OhioHealth Rehabilitation HospitalComment on above:Performed By: #### LIVER, BMP, LIPID #### [facility] [address] [address] Nikhil KarenLDL CALC NORMALSEE BELOWSelect Medical OhioHealth Rehabilitation HospitalComment on above: Result Comment: <100 mg/dl OPTIMAL 100 - 129 mg/dl NEAR OR ABOVE OPTIMAL 130 - 159 mg/dl BORDERLINE HIGH 160 - 189 mg/dl HIGH >190 mg/dl VERY HIGHPerformed By: #### LIVER, BMP, LIPID #### [facility] [address] [address] Nikhil KarenTriglyceride [Mass/Vol]94 mg/dLNormal<=150[facility] Comment on above:Performed By: #### LIVER, BMP, LIPID #### [facility] [address] [place] [address] Nikhil KarenVLDL CALC18.8 mg/dLNoMcKitrick HospitalComment on above: Performed By: #### LIVER, BMP, LIPID #### [facility] [address] [place] [address] Nikhil KarenLIVER PROFILEon [id number] [Mass/Vol]3.8 g/dLNormal3.5-5.0[facility] HospitalComment on above:Performed By: #### LIVER, BMP, LIPID #### [facility] [address] [place] [address] Nikhil KarenAlbumin/Globulin [Mass ratio]1.2 {ratio}NormalMercy Health St. [facility] Comment on above:Performed By: #### LIVER, BMP, LIPID #### [facility] [address] [place] [address] Nikhil KarenALP [Catalytic activity/Vol]104 U/IVytzoa76-878DumMercy Health St. [facility] Comment on above:Performed By: #### LIVER, BMP, LIPID #### [facility] [address] [place] [address] Nikhil KarenALT [Catalytic activity/Vol]31 U/OUjamqg00-74Pve [facility] Comment on above:Performed By: #### LIVER, BMP, LIPID #### [facility] [address] [address] Nikhil KarenAST [Catalytic activity/Vol]15 U/LCritically xrg53-88Eit [facility] HospitalComment on above:Performed By: #### LIVER, BMP, LIPID #### [facility] [address] [address] Nikhil KarenBILI, CONJUGATED0.1 mg/dLNormal0.0-0.3The [facility] HospitalComment on above:Performed By: #### LIVER, BMP, LIPID #### [facility] [address] [address] Nikhil KarenBilirubin [Mass/Vol]0.8 mg/dLNormal0.2-1.3TOhioHealth O'[facility] Hospital Comment on above:Performed By: #### LIVER, BMP, LIPID #### [facility] [address] [address] Nikhil KarenGlobulin (S) [Mass/Vol]3.3 g/dLNormalThe [facility] HospitalComment on above:Performed By: #### LIVER, BMP, LIPID #### [facility] [address] [address] Nikhil KarenProtein [Mass/Vol]7.1 g/dLNormal6.1-8.2The [facility] HospitalComment on above:Performed By: #### LIVER, BMP, LIPID #### [facility] [address] [address] Nikhil KarenPROF CHEM 8 (BAS METB)on 71-52-9405Gozhn gap [Moles/Vol]12.4 mmol/L NormalThe [facility] HospitalComment on above:Performed By: #### LIVER, BMP, LIPID #### [facility] [address] [place] [address] Nikhil KarenCalcium [Mass/Vol]8.9 mg/dLNormal8.4-10.2[facility] Comment on above:Performed By: #### LIVER, BMP, LIPID #### [facility] [address] [address] Nikhil KarenChloride [Moles/Vol]104 mmol/WNlcfgb05-543Iaz [facility] Comment on above:Performed By: #### LIVER, BMP, LIPID #### [facility] [address] [address] Nikhil KarenCO2 [Moles/Vol]29.3 mmol/EZjobrb77.0-30.0[facility] Comment on above:Performed By: #### LIVER, BMP, LIPID #### [facility] [address] [address] Nikhil KarenCreatinine [Mass/Vol]1.15 mg/dLNormal0.66-1.25The [facility] Comment on above:Performed By: #### LIVER, BMP, LIPID #### [facility] [address] [address] Nikhil KarenEGFR-AF CYMRO>60Normal>=60The [facility] HospitalComment on above: Performed By: #### LIVER, BMP, LIPID #### [facility] [address] [address] Nikhil KarenEGFR-NON AF CYMRO>60Normal>=60The [facility] HospitalComment on above:Performed By: #### LIVER, BMP, LIPID #### [facility] [address] [address] Nikhil KarenGlucose [Mass/Vol]118 mg/dLCritically voeu03-705IfgMercy Health St. Elizabeth [facility] HospitalComment on above:Performed By: #### LIVER, BMP, LIPID #### [facility] [address] [id number] Nikhil KarenPotassium [Moles/Vol]3.7 mmol/LNormal3.4-5.0[facility] Comment on above:Performed By: #### LIVER, BMP, LIPID #### [facility] [address] [address] Nikhil KarenSodium [Moles/Vol]142 mmol/UPxpxdd747-990Tah [facility] Comment on above:Performed By: #### LIVER, BMP, LIPID #### [facility] [address] [place], [place] [address] Nikhil KarenUrea nitrogen [Mass/Vol]16.0 mg/dLNormal9.0-20.0[facility] HospitalComment on above:Performed By: #### LIVER, BMP, LIPID #### [facility] [address] [place], [place] [address] Nikhil KarenUrea nitrogen/Creatinine [Mass ratio]13.9 mg/mgNormalThe [facility] HospitalComment on above:Performed By: #### LIVER, BMP, LIPID #### [facility] [address] [place], [place] [address] Nikhil Webberen Vital Signs Date TimeVital SignValuePerforming QnofnidoiTruthped51-49-4385 09:00-0500Body .34 cmPoswald Hoa Other [employer] Other 01-08-2024 09:00-0500Body mass index (BMI) [Ratio] 42.81 kg/o1Cqzsqe Hoa Other [employer] Other 01-08-2024 09:00-0500Body fhzzzzddiza28.3 [degF]Nikki Hoa Other [employer] Other 01-08-2024 09:00-0500Body .26 kgAbisaicuong Hoa Other [employer] Other 01-08-2024 09:00-0500Diastolic blood lssfhvbi28 mm[Hg] Nikki Hoa Other [employer] Other 01-08-2024 09:00-0500Respiratory rate18 /minNikki Camara Other [employer] Other 01-08-2024 09:00-2008WhZ5% (BldA) [Mass fraction]97 % Nikki Camara Other [employer] [facility] Other 01-08-2024 09:00-0500Systolic blood uijpabeh783 mm[Hg] Nikki Camara Other [facility] [employer] Other Encounters Encounter DateEncounter TypeCare ProviderFacilityStart: 06-22-2024 End: 80-71-2761Igwjiakga Result EncounterGeneric External Data ProviderNOMS External Department UnsolicitedStart: 06-22-2024 End: 66-68-0858Usscespzz Result EncounterGeneric External Data ProviderNOMS External Department UnsolicitedStart: 05-20-2024 End: 91-14-8566vkhoiplzevOMBVSBSt. Elizabeth Hospital Start: 12-01-2023 End: 67-86-9773scfylwlpvhDhrgsh Dymond Other [facility] [employer] Other Start: 64-66-7752Wdijyz outpatient new 20 minutes Nikki [facility] ClydeStart: 11-12-2023 End: 47-40-4338cipuzdubsuMCFKYW [facility] Start: 82-55-8040ykhcgumkceYOHGUC [facility] Start: 04-10-2022 End: 83-81-4531wpbqnabfcjDRAZZS SAMSAFacility:A0Wqmro: 06-14-2021 End: 56-53-6089snuipccpvvQBBJHSV BOESFacility:E6Juqks: 03-17-2018 End: 96-45-5181GllwuselciHUEXOQV PHYSICIANFacility:UTMCStart: 03-16-2018 End: 89-40-6755AnweblddtqNAFFEMC PHYSICIANFacility:[facility] Procedures DateProcedureProcedure DetailPerforming ClinicianStart: 67-93-9895GJ ECHO DOPPLER COMPLETEGeneric External Data Provider Payers DatePayer CategoryPayerPolicy [id number] [facility] [place] [id number] [id number] [id number] Social History DateTypeDetailFacilitySex Assigned At [facility] Other Tobacco smoking status NHISTobacco smoking consumption unknownVALLEY [facility]IEW [facility] HealthcareStart: 97-83-1490Nnx assigned at birthNot on fileCarondelet HealthStart: 16-67-0563CcmWrjgEOVN Healthcare Progress note 05-20-2024 Note Date & QjywKytyAvvaxtwe00-48-5288 NoteThis report has been cancelled. [facility] Progress note 05-20-2024 Note Date & KsycNrygLsvxerwf73-50-3111 NoteUT Cardiology - [facility] Subjective Silverio Cagle is a 48 y.o. [...] of cardiac disease (father at 58 of [place], brother had multiple stents and diet at [...] atorvastatin (Lipitor) 80 mg (more content not included)...[facility] Evaluation note 12-01-2023 Note Date & SccdRqdoPhpdeafe15-70-1571 Evaluation note* Encounter Date Diagnosis Assessment Notes Treatment Notes Treatment Clinical Notes Nov, Exposure to COVID-19 virus (ICD- 10 - Z20.822) Nov,4COVID-19 (ICD-10 - U07.1)Discharge Instructions for COVID-19 (Suspected or Confirmed ) material was printed Drink plenty fluids, get plenty of rest. Continue home medications as prescribed. Take Tylenol or Motrin as needed for aches pains or fevers. Follow- up with your family physician if no improvement in2 to 3 days. You must quarantine for 5 days after the onset of your symptoms of COVID [employer] Other Progress note 11-12-2023 Note Date & DedoUfmuGgplopzy09-70-5767 NoteUT Cardiology [facility] Subjective Silverio Cagle is a 47 [...] of cardiac disease (father at 58 of PA, brother had multiple stents and diet at [...] in the morning., Disp (more content not included)...[facility] Progress note 09-26-2023 Note Date & GngmDyjtTbbugvgh55-24-9437 NoteUT Cardiology - [facility] Subjective Silverio Cagle is a 47 [...] of cardiac disease (father at 58 of [place], brother had multiple stents and diet at [...] 1 tablet (40 mg (more content not included)...[facility] History general Narrative - Reported Note Date & TypeNoteFacilityHistory general Narrative - Reported* Type Description Date Medical History Hypertension Medical HistoryhypercholesterolemiaSurgical Historyear surgery right earSurgical Historyright handSurgical HistoryappendectomySurgical Historyvaricose vein strippingSurgical Historyheart iccac0481Ypjzjvrdsulwbkv Historysee above [employer] Other Summary Purpose Family History No Family History Records FoundNo Family History Records FoundNo Family History Records Found Advance Directives No Advanced Directives Records FoundNo Advanced Directives Records FoundNo Advanced Directives Records Found Additional Source Comments (unrecognized sect ion and content) No Status Records FoundNo Status Records FoundNo Status Records Found INFORMATION SOURCE (unrecogn ized section and content) DATE CREATED AUTHOR 05/14/2018 [facility] DATE CREATED AUTHOR AUTHOR'S ORGANIZ ATION 04/17/2022 [facility] DATE CREATED AUTHOR AUTHOR'S ORGANIZ ATION 07/01/2024 [facility] REASON FOR VISIT (unrecogniz ed section and content) COUGH, CONGESTION, N/V, LOOS E STOOL Care Teams (unrecognized sec tion and content) Team MemberRelationshipSpecialtyStart DateEnd Date Pete Jorge MD PCP - GeneralFamily Medicine02/16/24 Eleonora Hassan DO [address] [place] [address] Referring PhysicianNeurology02/11/24 FOR RECORDS PERTAINING TO PATIENTS WHO ARE [...] BE BASED ON THE PRIMARY CLINICAL RECORDS. [employer] provides no warranty or guarantee of the accuracy or completeness of information in this document.
[2025-10-19 16:05] LABS: Hematocrit 42.1 % (42.0-54.0); Hemoglobin 14.7 g/dL (14.0-18.0); Immature Granulocytes Abs Auto 0.05 10^3/uL (0.00-0.03); Immature Granulocytes Pct Auto 0.7 % (0.0-0.5); Lymphocytes Absolute Auto 1.8 10^3/uL (1.2-3.8); Mean Corpuscular HGB Conc 34.9 g/dL (29.9-35.2); Mean Corpuscular Hemoglobin 29.1 pg (25.9-34.0); Mean Corpuscular Volume 83.2 fL (80.0-94.0); Platelet Count 210 10^3/uL (150-450); Red Blood Count 5.06 10^6/uL (4.70-6.10); White Blood Count 7.6 10^3/uL (4.0-11.0)
[2025-10-19 16:24] LABS: Alanine Aminotransferase 46 U/L (16-63); Albumin Globulin Ratio 1.1; Albumin Level 3.9 g/dL (3.4-5.0); Alkaline Phosphatase 131 U/L (46-116); Anion Gap 9.4; Aspartate Amino Transferase 15 U/L (15-37); Blood Urea Nitrogen 21.0 mg/dL (7.0-18.0); Calcium 9.5 mg/dL (8.5-10.1); Carbon Dioxide 29.9 mmol/L (21.0-32.0); Chloride 102 mmol/L (98-107); Cholesterol 127 mg/dL (<=200); Estimated GFR (African America >60 (>=60 mL/min/1.73m^2); Estimated GFR (Non-African Ame >60 (>=60 mL/min/1.73m^2); Globulin 3.6 g/dL; Glucose 101 mg/dL (74-106); HDL Cholesterol 37 mg/dL (40-60); Potassium 3.3 mmol/L (3.5-5.1); Sodium 138 mmol/L (136-145); Total Protein 7.5 g/dL (6.4-8.2); Triglycerides 126 mg/dL (<=150); VLDL CHOLESTEROL 25.2 mg/dL
== END 2025-10-19 15:35 | disposition home or self-care (01) ==
LOC: LAB 15:39
PROVIDERS: PCP Family Medicine; Visit Provider Nurse Practitioner Family
DX: M79.604 Pain in right leg (principal); M79.605 Pain in left leg; I73.9 Peripheral vascular disease, unspecified; I25.118 Atherosclerotic heart disease of native coronary artery with other forms of angina pectoris; E78.2 Mixed hyperlipidemia
CPT/HCPCS: 36415; 80053; 80061; 85025; 93925; 93970